=== PATIENT | male | born 1960 | race Caucasian/White ===

== ENCOUNTER → 2017-11-30 | Outpatient (CLI) | payer OTHER ==
[~2017-11-30] MED LIST: ALLOPURINOL 10100 M1 PO; AMLODIPINE BESY10 MG PO; BYSTOLIC 5 MG5 M1 PO; CALCIUM 600 +1 EAC1 PO; CENTRUM TABLET1 TAB PO; CLONAZEPAM 0.50.5 M1 PO; DIOVAN320 MG PO; ELIQUIS5 MG PO; EXFORGE OR; GABAPENTIN 100100 MG PO; HYDROCODONE-ACE15 ML PO; HYDROCODONE-AP1 EAC6 PO; KLOR-CON 1010 MEQ PO; LASIX 40 MG TAB40 M2 PO; NEXIUM40 MG PO; PERCOCET 7.5-51 EACH PO; PREDNISONE 5 MG5 M1 PO; TESTONE CI200 MG/1 M IM; VITAMIN D1000 UNI1 PO; VITAMIN D250000 UNIT PO
[2017-11-30 13:40] VITALS: BP 120/92
[2017-11-30 14:15] VITALS: BP 125/86
== END ==
LOC: OPONC 13:05
DX: D58.2 Other hemoglobinopathies (principal); I10 Essential (primary) hypertension; E78.00 Pure hypercholesterolemia, unspecified
CPT/HCPCS: 95100

== ENCOUNTER → 2017-12-10 | Outpatient (CLI) | payer OTHER ==
[~2017-12-10] MED LIST changes: +BENICAR40 MG PO; +DEPO-TESTO200 MG/1 M IM; +HYDROCODON-ACE1 EAC8 PO; +NORCO 7.5-3251 EACH PO; +PERCOCET PO; +PROAIR HFA8.5 GM INH
== END ==
LOC: RAD 14:56
DX: M25.561 Pain in right knee (principal); M25.562 Pain in left knee

== ENCOUNTER → 2018-02-22 | Outpatient (CLI) | payer OTHER ==
[~2018-02-22] MED LIST changes: -BENICAR40 MG PO; -DEPO-TESTO200 MG/1 M IM; -HYDROCODON-ACE1 EAC8 PO; -NORCO 7.5-3251 EACH PO; -PERCOCET PO; -PROAIR HFA8.5 GM INH
== END ==
LOC: RAD 10:01
DX: M79.671 Pain in right foot (principal); S93.104A Unspecified dislocation of right toe(s), initial encounter

== ENCOUNTER 2018-03-29 05:28 | Day surgery (SDC) | payer OTHER ==
[~2018-03-29] VITALS: Ht 170.2 cm; Wt 110.7 kg
--- NOTE | ~2018-03-29 | O ---
[facility] [place] [address] OPERATIVE REPORT Name: MARY BRITO Room #: 150-2 [facility] M.R.#: [id number] Admission: 03/29/18 Attend Phys: Jose Sharif MD Discharge: Date of : 56 Report #: [id number] THIS REPORT FOR: //name// CC: Jose Magdalenoal Arthur DATE OF SERVICE: 03/29/2018 PREOPERATIVE DIAGNOSIS: Right second toe proximal interphalangeal joint dislocation. POSTOPERATIVE DIAGNOSIS: Right second toe proximal interphalangeal joint dislocation. PROCEDURE: Right foot second toe proximal interphalangeal joint arthrodesis with dorsal capsulotomy and tenotomy at the metatarsophalangeal joint. SURGEON: Jose Sharif MD RISK MODELER: Erica Prajapati. ANESTHESIA: General. ESTIMATED BLOOD LOSS: Minimal. DRAINS: No drains. TOURNIQUET TIME: 30 minutes. DESCRIPTION OF PROCEDURE: The patient brought to the operating room where he was placed under general anesthesia. Once under adequate general anesthesia, his right lower extremity was prepped and draped in sterile manner and the extremity was elevated, exsanguinated, tourniquet placed to 300 mmHg. An elliptical incision overlying the proximal interphalangeal joint of the right second toe was then made. This was taken down to the dislocation, sharply excising the extensor mechanism in this area. A sagittal saw was used to remove the proximal phalangeal head of the second toe and the base of the middle phalanx was denuded of any cartilage with a small rongeur. The drills and broaches for the second toe Smart Toe implant were then utilized and a size 21 implant was then placed. Fluoroscopy was used to verify the position to be satisfactory and the alignment to be satisfactory. A small 1 cm incision overlying the second metatarsophalangeal joint was then made as well and the extensor tendons were incised with tenotomy scissors. The dorsal capsule was incised as well with a 15 blade and the wound was then irrigated copiously. Both wounds were irrigated copiously. The capsular layer was closed with 4-0 Vicryl suture, 4-0 nylon was used in the skin. The wounds were dressed with [facility] [address] [place] [address] OPERATIVE REPORT Name: MARY BRITO Room #: 150-2 [facility] M.R.#: [id number] Admission: 03/29/18 Attend Phys: Jose Sharif MD Discharge: Date of : 56 Report #: [id number] Xeroform, 4 x 4s, and sterile soft compressive dressing was placed. Tourniquet was let down at 30 minutes. Toes were pink and warm with good capillary refill. There were no complications from the procedure. The patient tolerated the procedure well and went to recovery room without incident. By: 1312 1340 Jose Sharif MD /nt
[~2018-03-29 05:28] MED LIST changes: +DEPO-TESTO200 MG/1 M IM; +HYDROCODON-ACE1 EAC8 PO; +PROAIR HFA8.5 GM INH
[2018-03-29 10:50] VITALS: BP 144/85
[2018-03-29 11:31] LABS: CALCIUM 8.8 mg/dL (8.5-10.1); CREATININE 1.4 mg/dL (0.7-1.3); POTASSIUM 3.9 mmol/L (3.5-5.1)
[2018-03-29] MEDS ORDERED: PERCOCET PO (13:03)
[2018-03-29 13:19] VITALS: BP 144/85
== END 2018-03-29 14:00 | disposition home or self-care (01) ==
LOC: OR 05:28 → TBA 05:32 → OR 09:05 → TBA 12:00 → OR 14:00
PROVIDERS: Orthopaedic Surgery Foot and Ankle Surgery
DX: S93.114A Dislocation of interphalangeal joint of right lesser toe(s), initial encounter (principal); I10 Essential (primary) hypertension; I48.91 Unspecified atrial fibrillation; J45.909 Unspecified asthma, uncomplicated; M79.7 Fibromyalgia; K21.9 Gastro-esophageal reflux disease without esophagitis; M10.9 Gout, unspecified; M06.9 Rheumatoid arthritis, unspecified; F41.9 Anxiety disorder, unspecified; Z98.890 Other specified postprocedural states; Z79.01 Long term (current) use of anticoagulants; Z88.8 Allergy status to other drugs, medicaments and biological substances; Z79.899 Other long term (current) drug therapy; X58.XXXA Exposure to other specified factors, initial encounter; Y93.89 Activity, other specified; Y92.89 Other specified places as the place of occurrence of the external cause; Y99.8 Other external cause status
CPT/HCPCS: 50010; 50101; 50386; 50951; 56524; 56526; 57091; 62110; 62900; 64037; 70005

== ENCOUNTER → 2018-09-03 | Outpatient (CLI) | payer OTHER ==
[~2018-09-03] MED LIST changes: +PERCOCET PO
== END ==
LOC: CAT 14:00
DX: Z13.6 Encounter for screening for cardiovascular disorders (principal); E78.00 Pure hypercholesterolemia, unspecified

== ENCOUNTER → 2018-09-17 | Outpatient (CLI) | payer OTHER ==
[~2018-09-17] VITALS: Ht 170.2 cm; Wt 111.1 kg
[~2018-09-17] MED LIST changes: +BENICAR40 MG PO; +NORCO 7.5-3251 EACH PO
--- NOTE | ~2018-09-17 | CATHLAB ---
[facility] [address] [place] [address] INVASIVE PROCEDURE REPORT Name: MARY BRITO Room #: REG Yenifer#: [id number] Admission: 09/17/18 Attend Phys: Israel Eduardo, Discharge: Date of : 56 Date of Service: 09/23/18 [facility] Report #: [id number] THIS REPORT FOR: //name// APPROVED REPORT Study performed: 09/17/2018 07:13:10 Patient Details Patient Status: Out-Patient Room #: The patient is a 58 year-old male Event Personnel Israel Eduardo Wardrobe Specialist, Minh Andrew Mahmood, Amber Monitor, Tate Sales RN, Pravin Sidhu RN fast food shift supervisor Performed Art Access - R femoral artery* 60165 Initial Mod Sed Same Phys/QHP Gr5y [id number] Left Heart Cath w/or w/o Coronaries [id number] [facility] Aortogram Abdominal Peripheral Angio 687572 Renal Bilateral Peripheral Angiography [id number] CVRENALBIL Hemostasis w/ Mynx Indication Chest pain Procedure Narrative The patient was brought electively to the Cardiac Catheterization Laboratory and was prepped and draped in a sterile manner. The Right Groin^ was infiltrated with 1% Lidocaine subcutaneous anesthesia. A PINNACLE 6FR Sheath #[id number] sheath was inserted into the RFA^. Coronary angiography was performed using coronary diagnostic catheters. The right coronary system was accessed and visualized with a JR 4 catheter. The left coronary system was accessed and visualized with a JL 4 catheter. The left ventricle was accessed and visualized with a Pigtail catheter. Left ventriculogram was performed in OCONNOR projection. An aortogram of the abdominal aorta was performed. Pre-demployment femoral angiogram was performed . Closure device was deployed with a 6 Fr Mynx. The patient tolerated the procedure well and there were no complications associated with the procedure. There was no hematoma. Intraoperative Conscious Sedation Sedation start time: 07:57 Case end Time: 08:21 Versed 2 mg [facility] [address] [place] [address] INVASIVE PROCEDURE REPORT Name: MARY BRITO KAVITHA Room #: [facility]#: [id number] Admission: 09/17/18 Attend Phys: Israel Eduardo, Discharge: Date of : 56 Date of Service: 09/23/18 1300 Report #: [id number] Fluoro Time: 2.50 minutes Dose: DAP 7796.00 cGycm2 960 mGy Contrast Type and Amount: Omnipaque 145 ml Hemodynamics The aortic pressure is 152/92 mmHg with a mean of 115 mmHg. The left ventricular pressure is 165/19 mmHg with a mean of mmHg. The left ventricular end diastolic pressure is 32 mmHg. Conclusion #1 normal left ventricular size and systolic function EF 60% #2 abdominal aorta is mildly ectatic but not aneurysmal no stenosis. Iliac system widely patent #3 left main mild calcification mild ostial disease 2030% #4 LAD with an eccentric 60-70% proximal lesion moderate disease in the diagonal LAD otherwise well-preserved around the apex #5 there is a ramus intermedius branch which also a 60-70% proximal lesion well preserved distal vessel #6 large dominant circumflex extends in the AV groove in the inferior wall widely patent 7 small nondominant right coronary artery widely patent Indications and plan: Continue aggressive risk factor modification. We will add SGL inhibitor for diabetes and cardiovascular benefit. We'll obtain nuclear stress testing looking to evaluate for significant ischemia in LAD and ramus intermedius distribution. Patient asymptomatic currently. Follow post catheter protocol. Follow-up will be arranged. <ELECTRONICALLY SIGNED> By: Israel Eduardo MD, FACC 09/23/18 1300 1300 1300 Israel Eduardo MD, FACC /INF
[2018-09-17 06:56] VITALS: BP 145/97
[2018-09-17 07:09] LABS: HEMATOCRIT 48.6 % (42.0-52.0); HEMOGLOBIN 16.2 gm/dL (14.0-18.0); MCH 30.2 pg (26.0-34.0); MCHC 33.3 g/dL (28.0-37.0); MCV 90.7 fL (80.0-100.0); RBC 5.36 mil/uL (4.50-6.00); RDW 15.6 % (10.5-14.5)
[2018-09-17 07:19] LABS: CALCIUM 8.8 mg/dL (8.5-10.1); CREATININE 1.2 mg/dL (0.7-1.3); POTASSIUM 3.6 mmol/L (3.5-5.1)
[2018-09-17 08:30] VITALS: BP 137/78
== END | disposition home or self-care (01) ==
LOC: CATH 06:38
PROVIDERS: Internal Medicine Cardiovascular Disease
DX: I25.10 Atherosclerotic heart disease of native coronary artery without angina pectoris (principal); I77.811 Abdominal aortic ectasia; I10 Essential (primary) hypertension; E78.5 Hyperlipidemia, unspecified; I48.91 Unspecified atrial fibrillation; I42.9 Cardiomyopathy, unspecified; K21.9 Gastro-esophageal reflux disease without esophagitis; I73.9 Peripheral vascular disease, unspecified; M10.9 Gout, unspecified; G89.29 Other chronic pain; J45.909 Unspecified asthma, uncomplicated; I87.2 Venous insufficiency (chronic) (peripheral); F41.1 Generalized anxiety disorder; Z98.890 Other specified postprocedural states; Z82.49 Family history of ischemic heart disease and other diseases of the circulatory system; Z79.01 Long term (current) use of anticoagulants; Z88.8 Allergy status to other drugs, medicaments and biological substances

== ENCOUNTER 2018-10-08 19:09 | Emergency (ER) | payer OTHER ==
[~2018-10-08] VITALS: Ht 170.2 cm; Wt 111.1 kg
[2018-10-08 21:23] VITALS: BP 140/92
== END 2018-10-08 21:24 | disposition home or self-care (01) ==
LOC: ER 19:09
DX: S82.432A Displaced oblique fracture of shaft of left fibula, initial encounter for closed fracture (principal); I48.91 Unspecified atrial fibrillation; J45.909 Unspecified asthma, uncomplicated; I42.9 Cardiomyopathy, unspecified; G89.29 Other chronic pain; F41.1 Generalized anxiety disorder; M10.9 Gout, unspecified; E78.5 Hyperlipidemia, unspecified; I10 Essential (primary) hypertension; K21.9 Gastro-esophageal reflux disease without esophagitis; Z88.1 Allergy status to other antibiotic agents; Z88.8 Allergy status to other drugs, medicaments and biological substances; W18.31XA Fall on same level due to stepping on an object, initial encounter; Y93.89 Activity, other specified; Y92.89 Other specified places as the place of occurrence of the external cause; Y99.8 Other external cause status

== ENCOUNTER 2019-05-19 05:39 | Day surgery (SDC) | payer OTHER ==
[2019-05-07 09:03] LABS: URINE BILIRUBIN NEGATIVE (Negative); URINE BLOOD NEGATIVE (Negative); URINE CLARITY CLEAR; URINE COLOR YELLOW; URINE GLUCOSE-RANDOM* NEGATIVE (Negative); URINE KETONES NEGATIVE (Negative); URINE LEUKOCYTES-REFLEX NEGATIVE (Negative); URINE NITRITE-REFLEX NEGATIVE (Negative); URINE PROTEIN (DIPSTICK) TRACE (Negative); URINE SPECIFIC GRAVITY 1.015 (1.005-1.035); URINE UROBILINOGEN 0.2 E.U./dl (0.2-1.0)
[2019-05-07 09:04] LABS: HEMATOCRIT 49.6 % (42.0-52.0); HEMOGLOBIN 16.6 gm/dL (14.0-18.0); MCH 30.8 pg (26.0-34.0); MCHC 33.5 g/dL (28.0-37.0); RBC 5.4 mil/uL (4.50-6.00); WBC 13.4 thou/uL (4.0-11.0)
[2019-05-07 09:11] LABS: ALBUMIN 3.6 g/dL (3.4-5.0); CALCIUM 8.9 mg/dL (8.5-10.1); CREATININE 1.2 mg/dL (0.7-1.3)
[2019-05-07 09:14] LABS: INR 1.1; PROTIME 11.6 Seconds (9.3-11.4)
[2019-05-08 10:08] LABS: GLYCOHEMOGLOBIN (HGB A1C) 6.7 % (4.8-5.6)
[~2019-05-19] VITALS: Ht 170.2 cm; Wt 107.5 kg
[~2019-05-19 05:39] MED LIST changes: +GLUCOPHAGE XR500 MG PO; +REPATHA SY140 MG/1 M SUBQ
[2019-05-19 14:43] VITALS: BP 167/99
[2019-05-19 21:19] VITALS: BP 137/105
[2019-05-19 22:03] VITALS: BP 151/100
[2019-05-19 23:00] VITALS: BP 95/63
[2019-05-20 01:05] VITALS: BP 114/64
[2019-05-20 02:00] VITALS: BP 100/66
--- NOTE | 2019-05-20 02:28 | NUR ---
ASSUMED CARE OF PT AT 2100HRS. PT AOX4 AND LETS NEEDS BE KNOWN. PT WAS ORIENTED TO THE ROOM AND THE UNIT. POST OP VSS. PAIN IS MANAGED AT THIS TIME. PT WAS ABLE TO GET COMORTABLE AND SOME SLEEP. SURGICAL DRESSING INTACT. NO OHER S/S OF ACUTE DISTRESS. WILL CONTINE TO MONITOR.
[2019-05-20 03:55] VITALS: BP 90/72
[2019-05-20 05:31] LABS: HEMATOCRIT 46.3 % (42.0-52.0); HEMOGLOBIN 15.1 gm/dL (14.0-18.0); MCH 30.5 pg (26.0-34.0); MCHC 32.6 g/dL (28.0-37.0); MCV 93.5 fL (80.0-100.0); RBC 4.95 mil/uL (4.50-6.00); RDW 16.3 % (10.5-14.5); WBC 18.7 thou/uL (4.0-11.0)
[2019-05-20 07:39] VITALS: BP 119/78
--- NOTE | 2019-05-20 11:47 | NUR ---
Received awake on bed. Due medications given as prescribed- able to swallow meds w/o difficulty. With IV at L Fa- patent and IVF infusing well, ongoing 1st bag out of 2. On O2 at 2lpm via nasal cannula. Pt started on blood sugar monitoring- on metformin and taking steroids as well. With leg dressing on R knee- dressing C/D/I, with Lissy dressing and ice packs as well. Pt seen by PT today- did well on assessment and exercises, will inform surgeon on how he did and possible discharge today. Visited by relatives today. Complained of pain, due medications given as prescribed. Pt seen by Nisha Black- pending d/c, to home with home health- a/w CM re: home health set up. Vital signs stable.
[2019-05-20 13:35] VITALS: BP 119/78
--- NOTE | 2019-05-20 13:38 | NUR ---
INITIAL ASSESSMENT/DISCHARGE NOTE: Received consult for discharge planning--HH PT for 2 weeks. Pt also need a roller walker. FORD reviewed chart. Pt is POD#1 right TKA and is medically stable for discharge home today. Met with pt's at bedside. Introduced role of SW. Pt is alert/orientated x 4. Pt and live in a house. 5 steps to enter 12 steps inside. Pt is independent wtih ADLs. No use of DME or hx of HH or SNF/Rehab placement. Options provided for HH agencies. Pt's is agreeable with referral to [facility]. FORD confirmed pt's home address and phone number. Pt's PCP is Dr. Arthur. No preference voiced for [employer] company for roller walker. sales planner faxed face sheet to [facility] Patient for the roller walker. FORD spoke with Opal in intake to follow up on request for walker. Per Opal, she will check pt's insurance to confirm they are able to provide walker. FORD notified intake at [facility] of new referral. [facility] is able to accept pt. Contact info for [facility] and [facility] Patient placed in pt's discharge summary. Pt's family to provide transportation home. FORD is following to finalize discharge.
--- NOTE | 2019-05-20 14:09 | NUR ---
DISCHARGE PLANNING. PATIENT DISCHARGING TO HOME. WILL NEED ROLLER WALKRE FOR HOME USE. FACE SHEET FAXED TO [facility] PATIENT LIAISON, FOR INSURANCE AUTH VERIFICATION. AWAITING RESPONSE. FOLLOWING TO ASSIST.
--- NOTE | 2019-05-21 14:38 | O ---
[facility] [place] [address] OPERATIVE REPORT Name: MARY BRITO Room #: [facility] M.R.#: [id number] Admission: 05/19/19 ������������������ Attend Phys: Riaz Quigley MD Discharge: 05/20/19 ������������������ Date of : 56 Report #: [id number] THIS REPORT FOR: //name// CC: Jose Quigley DATE OF SERVICE: 05/19/2019 PREOPERATIVE DIAGNOSIS: Right knee osteoarthritis. POSTOPERATIVE DIAGNOSIS: Right knee osteoarthritis. PROCEDURE: Right total knee arthroplasty using Navio robotic medicine assistant. SURGEON: Riaz Quigley MD TECHNICAL SUPPORT MANAGER: Nisha Black PA-C ANESTHESIA: LMA with an adductor canal block. INDICATION FOR ASSISTANCE: Throughout the case, extensive retraction and manipulation of the knee was required. This was afforded to me by my medicine assistant. IMPLANTS: [employer] size 7 Journey II BCS posterior stabilized Oxinium femur, a size 6 tibia, size 9 polyethylene and size 38 patella. TOURNIQUET TIME: 61 minutes. ESTIMATED BLOOD LOSS: 25 mL. COMPLICATIONS: None. SPECIMENS: None. CONDITION UPON LEAVING THE OPERATING ROOM: Stable. INDICATIONS FOR PROCEDURE: The patient is a 59-year-old gentleman with right knee osteoarthritis. He had failed conservative measures for this and after discussion with him, he elected for right total knee arthroplasty. DESCRIPTION OF PROCEDURE: Risks, benefits, alternatives, complications were discussed in detail with the patient including, but not limited to, risk of anesthesia, risk of damage to nerves, arteries, blood vessels, risk for infection, bleeding, risk for continued knee pain and need for reoperation. Informed consent was obtained from the patient. Right knee was appropriately marked in the preoperative holding area. IV Ancef was given for preoperative [address] [address] OPERATIVE REPORT Name: MARY BRITO KAVITHA Room #: [facility] M.Ivis.#: [id number] Admission: 05/19/19 ������������������ Attend Phys: Riaz Quigley MD Discharge: 05/20/19 ������������������ Date of : 56 Report #: [id number] antibiotics. Adductor canal block was placed by anesthesia. He was brought to the operating room and placed in the supine position on the operating room table. LMA anesthesia was induced without complication. Tourniquet was placed on the right thigh. Right lower extremity was prepped and draped in normal sterile fashion. Timeout was performed properly identifying the patient and procedure as well as the instrumentation and implants. All in the operating room were in agreement. Right lower extremity was exsanguinated, tourniquet was inflated. Tourniquet time was 61 minutes. Standard midline approach to knee was made with #10 blade through the skin. Dissection was taken down sharply to the fascia and deep flaps were developed medially and laterally. Fresh #10 blade was used to make a medial parapatellar arthrotomy and the knee was inspected. There was severe medial compartment osteoarthritis with moderate lateral and patellofemoral involvement. ACL and PCL were removed sharply. Reference pins were placed in the femur and the tibia and the knee was then digitally mapped using the CO Everywhere robotic system and the intraoperative plan was made. We sized a size 7 femur and a size 6 tibia with a size 10 polyethylene. After acceptance of intraoperative plan, the distal femoral cut was made on the femur with a Navio bur. The distal femoral cutting block was then pinned in place and the femoral cuts were made. Attention was then turned to the tibia. The remainder of the menisci were removed with Bovie cautery. Tibial resection guide was pinned in place using Navio for placement and the tibial resection was made. After this, flexion and extension gaps were checked and found to have good balance in flexion and extension both medially and laterally. Tibia was sized, found to be a size 6. A size 6 tibial trial was placed, pinned and punched. A size 7 femoral trial was placed and the box cut was made. This was then trialed with a size 9 polyethylene. Knee was taken through range of motion, found to be stable, found to have a millimeter of laxity medially and laterally throughout range of motion. The 9 mm was then resected from the posterior surface of the patella and a size 38 patellar trial button was placed. Knee was taken through range of motion, found to be stable and found to have good patellar tracking. Trial components were removed. Bony ends were thoroughly irrigated with normal saline. Final size 6 tibia, size 7 Journey II BCS Oxinium femur and a size 38 patella were cemented in place using standard cementation techniques. While the cement cured, a periarticular injection consisting of morphine, ropivacaine, epinephrine and Toradol was placed around the knee joint capsule. After the cement cured, the tourniquet was deflated. Hemostasis was obtained with Bovie cautery. Final size 9 polyethylene was placed. A gram of vancomycin was placed deep in the joint. Fascia was closed with 0 Vicryl, skin was closed with 2-0 Vicryl, 3-0 Monocryl. Dermabond and KARLY dressing was applied. The patient tolerated this procedure well and went to recovery room under care of anesthesia postoperatively. ��������������������������������������������� <ELECTRONICALLY SIGNED> ���������������������������������������� By: Riaz Quigley MD ��������������������������������������������� 05/21/19 1438 1927 08 Riaz Quigley MD /nt
== END 2019-05-20 16:52 | disposition home health service (06) ==
LOC: OR 05:39 → EDBD 05:39 → TBA 05:40 → OR 08:00 → 4W 21:08 → ENTRNSPT 05-20 16:49 → OR 05-20 16:52
PROVIDERS: Orthopaedic Surgery
DX: M17.11 Unilateral primary osteoarthritis, right knee (principal); I10 Essential (primary) hypertension; E11.9 Type 2 diabetes mellitus without complications; I48.91 Unspecified atrial fibrillation; F41.9 Anxiety disorder, unspecified; J45.909 Unspecified asthma, uncomplicated; I42.9 Cardiomyopathy, unspecified; G89.29 Other chronic pain; I87.2 Venous insufficiency (chronic) (peripheral); F41.1 Generalized anxiety disorder; M10.9 Gout, unspecified; E78.5 Hyperlipidemia, unspecified; Z98.890 Other specified postprocedural states; Z79.01 Long term (current) use of anticoagulants; Z79.899 Other long term (current) drug therapy; Z88.8 Allergy status to other drugs, medicaments and biological substances; Z79.891 Long term (current) use of opiate analgesic
CPT/HCPCS: 10047; 50010; 50101; 50415; 50954; 51130; 51225; 51320; 52001; 53000; 53078; 54118; 55372; 56527; 56528; 57095; 57103; 57110; 57127; 57180; 62110; 62900; 64043; 65060; 70005

== ENCOUNTER 2019-05-22 06:40 | Day surgery (SDC) | payer OTHER ==
[~2019-05-22] VITALS: Ht 170.2 cm; Wt 108.9 kg
--- NOTE | ~2019-05-22 | O ---
[facility] [place] [address] OPERATIVE REPORT Name: MARY BRITO Room #: 150-10 [facility] M.R.#: [id number] Admission: 05/22/19 ������������������ Attend Phys: Riaz Quigley MD Discharge: ������������������ Date of : 56 Report #: [id number] THIS REPORT FOR: //name// CC: Jose Quigley DATE OF SERVICE: 05/22/2019 PREOPERATIVE DIAGNOSIS: Right knee postop total knee arthroplasty hematoma. POSTOPERATIVE DIAGNOSIS: Right knee postop total knee arthroplasty hematoma. PROCEDURE: Evacuation of right knee hematoma. SURGEON: Riaz Quigley MD. CHART CLERK: Nisha Black PA-C. ANESTHESIA: LMA. ESTIMATED BLOOD LOSS: 25 mL. COMPLICATIONS: None. SPECIMENS: None. CONDITION UPON LEAVING THE OPERATING ROOM: Stable. INDICATIONS FOR PROCEDURE: The patient is a 59-year-old gentleman who is 4 days out from a right total knee arthroplasty. He is on Eliquis for underlying atrial fibrillation. He presented to the clinic yesterday with significant drainage of blood from his incision. It was felt that he had developed a postoperative hematoma secondary to his Eliquis usage and after discussion with him he elected for evacuation of the hematoma. DESCRIPTION OF PROCEDURE: Risks, benefits, alternatives, complications were discussed in detail with the patient including but not limited to risk of anesthesia, risk of damage to nerves, arteries, blood vessels; risk for infection, continued bleeding, need for reoperation. Informed consent was obtained from the patient. DESCRIPTION OF PROCEDURE: Right knee was appropriately marked in the preoperative holding area. IV Ancef was given for preoperative antibiotics. He was brought to the operating room and placed in supine position on operating room table. LMA anesthesia was induced without complication. Tourniquet was placed on the right thigh. Right lower extremity was prepped and draped in [address] [address] OPERATIVE REPORT Name: MARY BRITO Room #: 150-10 [facility] M.R.#: [id number] Admission: 05/22/19 ������������������ Attend Phys: Riaz Quigley MD Discharge: ������������������ Date of : 56 Report #: [id number] normal sterile fashion. Timeout was performed properly identifying the patient and procedure as well as instrumentation. All in the operating room were in agreement. The previous incision was then opened with a 10 blade. Upon entering the adipose layer, there was a hematoma that was evacuated. There were some bleeding vessels at the inferior portion of his incision that were cauterized with Bovie cautery. The fascial closure was well maintained and this was not opened. Knee was then thoroughly irrigated with normal saline. A Hemovac drain was placed. The skin was closed with 2-0 Vicryl and skin iris and a KARLY dressing was applied. The patient tolerated this procedure well and went to recovery room under care of Anesthesia postoperatively. ��������������������������������������������� ���������������������������������������� By: ��������������������������������������������� 1405 1415 Riaz Quigley MD /tiarra
[2019-05-22 10:00] VITALS: BP 137/81
[2019-05-22 12:19] VITALS: BP 137/81
== END 2019-05-22 13:30 | disposition home or self-care (01) ==
LOC: OR 06:40 → EDBD 06:40 → TBA 06:40 → OR 11:29
DX: M96.840 Postprocedural hematoma of a musculoskeletal structure following a musculoskeletal system procedure (principal); Z96.651 Presence of right artificial knee joint; I10 Essential (primary) hypertension; M10.9 Gout, unspecified; E11.9 Type 2 diabetes mellitus without complications; I48.91 Unspecified atrial fibrillation; J45.909 Unspecified asthma, uncomplicated; E78.5 Hyperlipidemia, unspecified; K21.9 Gastro-esophageal reflux disease without esophagitis; I42.9 Cardiomyopathy, unspecified; G89.29 Other chronic pain; I87.2 Venous insufficiency (chronic) (peripheral); F41.1 Generalized anxiety disorder; M06.9 Rheumatoid arthritis, unspecified; Z79.01 Long term (current) use of anticoagulants; Z98.890 Other specified postprocedural states; Z79.899 Other long term (current) drug therapy; Z88.8 Allergy status to other drugs, medicaments and biological substances; Z79.891 Long term (current) use of opiate analgesic
CPT/HCPCS: 50010; 50101; 50415; 50954; 51412; 51771; 53078; 56528; 57095; 57103; 62110; 62900; 70005

== ENCOUNTER → 2019-05-27 | Outpatient (CLI) | payer OTHER | LOC: ULTRA 15:08 | DX: M79.89 Other specified soft tissue disorders (principal); M25.461 Effusion, right knee ==

== ENCOUNTER 2019-06-12 17:39 | Emergency (ER) | payer OTHER ==
[~2019-06-12] VITALS: Ht 170.2 cm; Wt 108.9 kg
[2019-06-12 19:20] LABS: HEMATOCRIT 41.2 % (42.0-52.0); HEMOGLOBIN 13.4 gm/dL (14.0-18.0); MCH 30.5 pg (26.0-34.0); MCHC 32.4 g/dL (28.0-37.0); PLATELET COUNT 299 thou/uL (150-400); RBC 4.39 mil/uL (4.50-6.00); RDW 16.5 % (10.5-14.5); WBC 13.9 thou/uL (4.0-11.0)
[2019-06-12 19:28] LABS: CALCIUM 9.1 mg/dL (8.5-10.1); CREATININE 1.3 mg/dL (0.7-1.3); POTASSIUM 5.6 mmol/L (3.5-5.1)
[2019-06-12 19:34] LABS: TOTAL BILIRUBIN 0.7 mg/dL (<0.1-1.0); TOTAL PROTEIN 6.9 g/dL (6.4-8.2)
[2019-06-12 20:02] VITALS: BP 144/95
[2019-06-12 20:15] LABS: ABSOLUTE NEUTROPHILS 12.1 thou/uL (1.4-8.2); ANISOCYTOSIS 1+
[2019-06-12 20:16] LABS: POLYCHROMASIA OCCASIONAL
--- NOTE | 2019-06-13 08:10 | EKG ---
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 : 1960 Requested By: Kvng Howell Order Number: [id number] MD: Samson Lugo Measurements Intervals [place] Rate: 67 P: ID: QRS: -2 QRSD: 92 T: 16 QT: 401 QTc: 424 Interpretive Statements Atrial fibrillation Otherwise normal Compared to ECG 03/31/2000 16:09:14 Sinus rhythm no longer present Electronically Signed On 06-13-2019 8:09:52 CDT by Samson Lugo [email or web address] ��������������������������������������������� <ELECTRONICALLY SIGNED> ���������������������������������������� By: Samson Lugo MD, [facility] ��������������������������������������������� 06/13/19 0809 13 13 Samson Lugo MD, FACC /EPI
== END 2019-06-12 20:05 | disposition home or self-care (01) ==
LOC: ER 17:39 → EDBD 17:39 → ER 20:05
PROVIDERS: Emergency Medicine
DX: M25.541 Pain in joints of right hand (principal); R20.0 Anesthesia of skin; I48.91 Unspecified atrial fibrillation; G89.29 Other chronic pain; F41.9 Anxiety disorder, unspecified; M10.9 Gout, unspecified; E11.9 Type 2 diabetes mellitus without complications; I10 Essential (primary) hypertension; E78.5 Hyperlipidemia, unspecified; J45.909 Unspecified asthma, uncomplicated; Z96.651 Presence of right artificial knee joint; Z88.1 Allergy status to other antibiotic agents; Z88.5 Allergy status to narcotic agent; Z88.8 Allergy status to other drugs, medicaments and biological substances

== ENCOUNTER → 2019-07-02 | Outpatient (CLI) | payer OTHER | LOC: HYPER 07-01 15:47 | DX: I70.25 Atherosclerosis of native arteries of other extremities with ulceration (principal); L98.491 Non-pressure chronic ulcer of skin of other sites limited to breakdown of skin; I74.9 Embolism and thrombosis of unspecified artery; E78.5 Hyperlipidemia, unspecified; I10 Essential (primary) hypertension; I48.2 Chronic atrial fibrillation; I99.8 Other disorder of circulatory system; I42.9 Cardiomyopathy, unspecified; I87.2 Venous insufficiency (chronic) (peripheral); M10.9 Gout, unspecified; K21.9 Gastro-esophageal reflux disease without esophagitis; G89.29 Other chronic pain; F41.9 Anxiety disorder, unspecified; Z79.82 Long term (current) use of aspirin; Z79.52 Long term (current) use of systemic steroids; Z79.01 Long term (current) use of anticoagulants ==

== ENCOUNTER → 2019-07-17 | Outpatient (CLI) | payer OTHER | LOC: HYPER 07:21 | DX: I70.25 Atherosclerosis of native arteries of other extremities with ulceration (principal); L98.491 Non-pressure chronic ulcer of skin of other sites limited to breakdown of skin; E78.5 Hyperlipidemia, unspecified; G89.29 Other chronic pain; I74.9 Embolism and thrombosis of unspecified artery; I48.2 Chronic atrial fibrillation; I99.8 Other disorder of circulatory system; I42.9 Cardiomyopathy, unspecified; I10 Essential (primary) hypertension; M10.9 Gout, unspecified; K21.9 Gastro-esophageal reflux disease without esophagitis; F41.9 Anxiety disorder, unspecified; Z96.659 Presence of unspecified artificial knee joint; Z79.82 Long term (current) use of aspirin; Z79.52 Long term (current) use of systemic steroids; Z79.01 Long term (current) use of anticoagulants ==

== ENCOUNTER → 2019-08-07 | Outpatient (CLI) | payer OTHER ==
[~2019-08-07] MED LIST changes: +ASPIRIN325 PO; +GABAPENTIN800 M1 PO; +GLUCOPHAGE XR500 M1 PO; -GLUCOPHAGE XR500 MG PO; +KEFLEX500 M2 PO; +NORCO 10-325 T1 EACH PO; +POTASSIUM20 PO; +ZYLOPRIM300 MG PO
== END ==
LOC: MRI 11:10
DX: M18.11 Unilateral primary osteoarthritis of first carpometacarpal joint, right hand (principal); R60.0 Localized edema

== ENCOUNTER → 2019-08-07 | Outpatient (CLI) | payer OTHER ==
[~2019-08-07] MED LIST changes: -ASPIRIN325 PO; -GABAPENTIN800 M1 PO; -GLUCOPHAGE XR500 M1 PO; +GLUCOPHAGE XR500 MG PO; -KEFLEX500 M2 PO; -NORCO 10-325 T1 EACH PO; -POTASSIUM20 PO; -ZYLOPRIM300 MG PO
== END ==
LOC: HYPER
DX: I70.25 Atherosclerosis of native arteries of other extremities with ulceration (principal); L98.491 Non-pressure chronic ulcer of skin of other sites limited to breakdown of skin; E78.5 Hyperlipidemia, unspecified; G89.29 Other chronic pain; I10 Essential (primary) hypertension; I48.91 Unspecified atrial fibrillation; I42.9 Cardiomyopathy, unspecified; I99.8 Other disorder of circulatory system; I74.9 Embolism and thrombosis of unspecified artery; I48.2 Chronic atrial fibrillation; K21.9 Gastro-esophageal reflux disease without esophagitis; M10.9 Gout, unspecified; F41.9 Anxiety disorder, unspecified; Z79.82 Long term (current) use of aspirin; Z79.52 Long term (current) use of systemic steroids; Z79.01 Long term (current) use of anticoagulants

== ENCOUNTER → 2019-08-28 | Outpatient (CLI) | payer OTHER ==
[~2019-08-28] MED LIST changes: +ASPIRIN325 PO; +GABAPENTIN800 M1 PO; +GLUCOPHAGE XR500 M1 PO; -GLUCOPHAGE XR500 MG PO; +KEFLEX500 M2 PO; +NORCO 10-325 T1 EACH PO; +POTASSIUM20 PO; +ZYLOPRIM300 MG PO
== END ==
LOC: HYPER 03:46
DX: L98.491 Non-pressure chronic ulcer of skin of other sites limited to breakdown of skin (principal); I70.25 Atherosclerosis of native arteries of other extremities with ulceration; I99.8 Other disorder of circulatory system; I74.9 Embolism and thrombosis of unspecified artery; I42.9 Cardiomyopathy, unspecified; M10.9 Gout, unspecified; E78.5 Hyperlipidemia, unspecified; G89.29 Other chronic pain; K21.9 Gastro-esophageal reflux disease without esophagitis; F41.9 Anxiety disorder, unspecified; Z79.82 Long term (current) use of aspirin; Z79.52 Long term (current) use of systemic steroids; Z79.01 Long term (current) use of anticoagulants

== ENCOUNTER 2019-09-15 12:42 | Day surgery (SDC) | payer OTHER ==
[~2019-09-15] VITALS: Ht 170.2 cm; Wt 105.7 kg
--- NOTE | ~2019-09-15 | O ---
[facility] [place] [address] OPERATIVE REPORT Name: MARY BRITO Room #: 150-1 [facility] M.R.#: [id number] Admission: 09/15/19 Attend Phys: Jana Chao, Discharge: Date of : 56 Report #: [id number] THIS REPORT FOR: //name// CC: Jose Chao DATE OF SERVICE: 09/15/2019 PREOPERATIVE DIAGNOSIS: Right ring finger necrosis and tip necrosis. POSTOPERATIVE DIAGNOSIS: Right ring finger necrosis and tip necrosis. PROCEDURE PERFORMED: Right ring finger amputation through the proximal interphalangeal joint. SURGEON: Jana Chao M.D. ANESTHESIA: General mask anesthesia. ESTIMATED BLOOD LOSS: 2 mL. TOURNIQUET TIME: 29 minutes. COMPLICATIONS: None. CONDITION: Stable. DISPOSITION: Recovery room. INDICATIONS: The patient is a 59-year-old male with the above-mentioned diagnosis. He elects for operative treatment. The risks, benefits, alternatives and complications were discussed including but not limited to infection, damage to vessels or nerves, incomplete healing of his wound or stump pain. Informed consent was obtained. The correct extremity was identified and labeled by myself after verbal confirmation of the patient as well as visual confirmation and signed informed consent. DESCRIPTION OF PROCEDURE: The patient was brought to the operating room and placed on a supine position. He received preoperative antibiotics. Tourniquet was placed over padding on the patient's right upper extremity was sterilely prepped and draped in usual fashion. A final time-out was taken to verify correct patient, operative procedure, and site, all concurred. The arm was elevated, exsanguinated proximal to the wrist and the tourniquet inflated. Next, the necrotic bone was removed. The bone was removed all the way to the PIP joint. The neurovascular bundles were identified. The nerves were transected proximally sharply. A volar flap was created and this was sutured to [address] [address] OPERATIVE REPORT Name: MARY BRITO Room #: 150-1 [facility] M..#: [id number] Admission: 09/15/19 Attend Phys: Jana Chao, Discharge: Date of : 56 Report #: [id number] the dorsal skin and any dog ears were removed. Prior to performing the closure, the wound was thoroughly irrigated with antibiotic saline. The skin was closed with 4-0 nylon suture in a detentioning type stitch. The digital nerve block was done at the base of the finger volarly with approximately 6 mL of 0.25% Marcaine. The tourniquet was deflated. There was nice pink capillary refill immediately to the tip. The wound was dressed with Adaptic and sterile gauze. He was placed in a bulky dressing. All fingers were pink with brisk capillary refill at the conclusion of case after deflation of tourniquet. All sponge and needle counts were correct. The patient was transferred to postoperative recovery room in stable condition. By: 1539 1625 Jana Chao MD /nt
[2019-09-15 13:21] LABS: CALCIUM 9.5 mg/dL (8.5-10.1); CREATININE 1.1 mg/dL (0.7-1.3); POTASSIUM 3.9 mmol/L (3.5-5.1)
[2019-09-15 13:55] VITALS: BP 142/98
[2019-09-15 15:57] VITALS: BP 142/98
--- NOTE | 2019-09-17 17:06 | PATH ---
[facility] [address] [place] [address] PATHOLOGY RPT PROCEDURE Name: MARY BRITO Room #: DEP [facility] M.R.#: [id number] Admission: 09/15/19 Date of : 56 Discharge: 09/15/19 Report #: [id number] Path Case #: [id number] LCA Accession Number: [id number] . 01 Material submitted: . finger - RIGHT RING FINGER PARTIAL AMPUTATION. Modifiers: right . 01 Clinical history: . Idiopathic aseptic necrosis of right finger . 02 Diagnosis: Finger, right ring finger, partial amputation: - Skin and subcutaneous tissue showing ulceration, fibrinoid degeneration as well as gangrenous necrosis. - Marked acute inflammation involving underlying bone consistent with osteomyelitis. - Bone margin viable and unremarkable. (IUV:treva; 09/17/2019) MBR 09/17/2019 1502 Local . 02 Electronically signed: . Graciela Miller MD, Pathologist NPI- [id number] . 01 Gross description: . The specimen is received in formalin, labeled "Mary Brito, right ring finger partial amputation". Received is an AP dated digit measuring 5.3 x 2.2 x 1.8 cm in greatest dimensions. The bone margin is smooth and concave in appearance, consistent with disarticulation. The bone and soft tissue margins are inked black. The nail is present displaying a light lucero and grossly markedly appearance. The distal third of the specimen is dusky diallo-brown and flaky in appearance. A full-thickness longitudinal cross-section is submitted from proximal to distal aspects in cassettes A1 through A3, following decalcification. (CAA; 09/16/2019) QAC/QAC 09/16/2019 1136 Local . 02 Pathologist provided ICD-10: M86.8X4, I96 . 02 CPT . 546967 Specimen Comment: A courtesy copy of this report has been sent to [phone] Specimen Comment: [phone] Specimen Comment: Report sent to / DR BENITEZ Performed at: 01 [place] [address] PATHOLOGY RPT PROCEDURE Name: MARY BRITO Room #: DEP [facility] M.R.#: [id number] Admission: 09/15/19 Date of : 56 Discharge: 09/15/19 Report #: [id number] Path Case #: [id number] [facility] [place] [address], [place], [place] [id number] MD Misbah Angela MD Phone: [phone] Performed at: [address] [id number] MD Graciela Miller MD Phone: [phone]
== END 2019-09-15 17:00 | disposition home or self-care (01) ==
LOC: OR 12:42 → TBA 14:28 → OR 17:00
PROVIDERS: Orthopaedic Surgery Hand Surgery
DX: M86.141 Other acute osteomyelitis, right hand (principal); I96 Gangrene, not elsewhere classified; G89.29 Other chronic pain; I10 Essential (primary) hypertension; E78.5 Hyperlipidemia, unspecified; J45.909 Unspecified asthma, uncomplicated; I48.91 Unspecified atrial fibrillation; I42.9 Cardiomyopathy, unspecified; M10.9 Gout, unspecified; E11.9 Type 2 diabetes mellitus without complications; M06.9 Rheumatoid arthritis, unspecified; I87.2 Venous insufficiency (chronic) (peripheral); F41.1 Generalized anxiety disorder; Z98.890 Other specified postprocedural states; Z96.651 Presence of right artificial knee joint; Z88.8 Allergy status to other drugs, medicaments and biological substances; Z79.899 Other long term (current) drug therapy; Z79.01 Long term (current) use of anticoagulants
CPT/HCPCS: 50010; 50101; 50386; 56526; 57006; 57091; 57178; 62110; 62900; 70005

== ENCOUNTER → 2020-01-02 | Outpatient (CLI) | payer OTHER ==
[~2020-01-02] MED LIST changes: +EFFIENT10 MG PO; +LIPITOR40 MG PO
== END ==
LOC: SJCVCIMAG 08:19
DX: I48.91 Unspecified atrial fibrillation (principal); I42.9 Cardiomyopathy, unspecified; R53.83 Other fatigue; I10 Essential (primary) hypertension; E78.5 Hyperlipidemia, unspecified; I25.10 Atherosclerotic heart disease of native coronary artery without angina pectoris; Z79.899 Other long term (current) drug therapy

== ENCOUNTER 2020-01-05 06:33 | Observation (INO) | payer OTHER ==
[~2020-01-05] VITALS: Ht 170.2 cm; Wt 106.1 kg
[2020-01-05] VITALS (8 sets, daily range): BP systolic 143–176; BP diastolic 88–101
--- NOTE | ~2020-01-05 | D ---
[facility] [place] [address] DISCHARGE SUMMARY Name: MARY BRITO Room #: 211-P [facility] M.R.#: [id number] Admission: 01/05/20 Attend Phys: Israel Eduardo MD, Discharge: Date of : 56 Report #: [id number] THIS REPORT FOR: cc: Jose Arthur MD, Neal A. MD ~ THIS REPORT FOR: //name// CC: Israel Eduardo Jose Arthur [facility] COURSE: The patient is a 59-year-old male who was admitted with accelerating angina and an abnormal nuclear stress test suggesting progression of an LAD lesion. Subsequently, he was admitted and taken to the catheterization lab. There was definite progression of the proximal LAD lesion, ____ 98% proximal LAD. This was successfully dilated and stented with placement of a 2.75 x 15 Resolute [place] drug-eluting stent. This was postdilated with a noncompliant balloon to 3.1 mm. This yielded 0% residual and ERWIN grade 3 flow. There was mild disease in the remainder of the LAD, which wrapped the apex and the diagonal system, but brisk flow noted. The circumflex OM was a dominant vessel and 40% proximal and some mild distal disease. Nondominant right. LV function was preserved. He is up and ambulating. The groin is stable. EKG is showing no acute changes. He will go on dual therapy. He has permanent AFib, so he will be on Eliquis 5 mg b.i.d. q. 12 hours as described and Effient 10 mg daily. There will be no aspirin. We will not use triple therapy here. Remainder of his home medications will be restarted and have been restarted with the exception of metformin which will be given to restart tomorrow morning. Other medications will be albuterol, allopurinol, Bystolic 5 mg, his Depo-Testosterone, Lasix 40, gabapentin, hydrocodone and [place] as directed, metformin 500 daily to restart tomorrow, olmesartan 40, prednisone 10. No lifting for 48 hours. No lying in tub, Jacuzzi or tena for a week. The patient has to followup with Dr. Arthur and Dr. Falcon. DISCHARGE DIAGNOSES: 1. Coronary artery disease with accelerating angina, successful urgent placement of the proximal left anterior descending stent, see above. 2. Hypertension. 3. Hypercholesterolemia. 4. Permanent atrial fibrillation. 5. Chronic pain with underlying connective tissue disorder. Followup will be with myself in 1 month. No MRI or dental work for [address] [address] DISCHARGE SUMMARY Name: MARY BRITO Room #: 211-P [facility] M.R.#: [id number] Admission: 01/05/20 Attend Phys: Israel Eduardo MD, Discharge: Date of : 56 Report #: [id number] Thank you for asking me to assist in the care of this patient. By: 0732 0808 /nt
[~2020-01-05 06:33] MED LIST changes: -EFFIENT10 MG PO; -LIPITOR40 MG PO
[2020-01-05 07:15] LABS: HEMATOCRIT 44.5 % (42.0-52.0); MCH 28.5 pg (26.0-34.0); MCHC 31.4 g/dL (28.0-37.0); MCV 90.8 fL (80.0-100.0); RBC 4.9 mil/uL (4.50-6.00); RDW 16.4 % (10.5-14.5); WBC 16.6 thou/uL (4.0-11.0)
[2020-01-05 07:21] LABS: CALCIUM 9.2 mg/dL (8.5-10.1); CREATININE 1.1 mg/dL (0.7-1.3); POTASSIUM 3.8 mmol/L (3.5-5.1)
--- NOTE | 2020-01-05 09:02 | EKG ---
[facility] [place] [address] ELECTROCARDIOGRAM REPORT Name: MARY BRITO Room #: REG CL M..#: [id number] Admission: 01/05/20 Attend Phys: Israel Eduardo MD, Discharge: Date of : 56 Report #: [id number] THIS REPORT FOR: cc: Jose Arthur MD, Neal A. MD Lammoglia, Francisco J. MD ~ THIS REPORT FOR: //name// [facility] Test Date: 2020-01-05 Test Time: 07:23:51 Pat Name: MARY BRITO Department: Room: Gender: Supplier Quality Specialist: [facility] : 1960 Requested By: Israel Eduardo Order Number: [id number] MD: Gonzalez Bishop Measurements Intervals [place] Rate: 62 P: [place]: QRS: 5 QRSD: 95 T: 35 QT: 397 QTc: 404 Interpretive Statements Atrial fibrillation Early transition Nonspecific ST-T wave changes Compared to ECG 06/12/2019 19:14:49 No significant changes Electronically Signed On 01-05-2020 9:01:58 LITIGATION DOCKET MANAGER by Gonzalez Bishop [email or web address] <ELECTRONICALLY SIGNED> By: Gonzalez Bishop MD 01/05/20900 2 2 Gonzalez Bishop MD /EPI
--- NOTE | 2020-01-05 12:29 | NUR ---
TO UNIT BY CART AT 1030, REPORT FROM JUNAID BARGER. HTN NOTED. SOMETIMES SA OFE PER TELE. RIGHT GROIN SITE SOFT, CLEAN AND DRY. BR UNTIL NOON, THEN UP TO BR TO VOID. SITE UNCHANGED. WILL CONTINUE TO FOLLOW CLOSELY.
[2020-01-06] VITALS: BP 163/101
[2020-01-06 04:00] VITALS: BP 150/89
[2020-01-06 04:10] LABS: HEMATOCRIT 47.2 % (42.0-52.0); HEMOGLOBIN 15.2 gm/dL (14.0-18.0); MCH 29.2 pg (26.0-34.0); MCHC 32.2 g/dL (28.0-37.0); MCV 90.7 fL (80.0-100.0); RBC 5.2 mil/uL (4.50-6.00); RDW 16.9 % (10.5-14.5); WBC 12.8 thou/uL (4.0-11.0)
[2020-01-06 04:21] LABS: ALBUMIN 3.3 g/dL (3.4-5.0); ANION GAP 6 mmol/L (7-16); BUN 15 mg/dL (7-18); CALCIUM 8.7 mg/dL (8.5-10.1); CHLORIDE 99 mmol/L (98-107); CO2 30 mmol/L (21-32); GLUCOSE 140 mg/dL (74-106); POTASSIUM 4.2 mmol/L (3.5-5.1); SGOT 11 U/L (15-37); SGPT 16 U/L (30-65); SODIUM 135 mmol/L (136-145); TOTAL BILIRUBIN 0.9 mg/dL (<0.1-1.0); TOTAL PROTEIN 6.5 g/dL (6.4-8.2); TROPONIN-I <0.06 ng/mL (<0.06)
--- NOTE | 2020-01-06 04:24 | NUR ---
ASSUMED PT CARE AT 1900, PT IS ALERT AND ORIENTEDX4, DENIES CHEST PAIN AND SOB, PT IS AFIB ON THE MONITOR, COMPLAINED OF GENERALIZED PAIN, MEDICATED PRN WITH PARTIAL RELIEF, GROIN SITE CLEAN, DRY AND INTACT, NO SIGNS OF HEMATOMA, PT UP ADLIB, STEADY, ASSESSMENTS CHARTED, RESTED WELL, WILL CONTINUE TO MONITOR
[2020-01-06 07:00] VITALS: BP 135/80
[2020-01-06] MEDS ORDERED: EFFIENT10 MG PO (07:43)
[2020-01-06] MEDS ORDERED: LIPITOR40 MG PO (07:43)
--- NOTE | 2020-01-06 08:11 | EKG ---
[facility] [place] [address] ELECTROCARDIOGRAM REPORT Name: MARY BRITO Room #: 211-P ADM [facility] M.R.#: [id number] Admission: 01/05/20 Attend Phys: Israel Eduardo MD, Discharge: Date of : 56 Report #: [id number] THIS REPORT FOR: cc: Jose Arthur MD, Neal A. MD Couchonnal, Luis F. MD ~ THIS REPORT FOR: //name// [facility] Test Date: 2020-01-06 Test Time: 07:31:15 Pat Name: MARY BRITO Department: Room: 211 P Gender: M Drill Grinder: BRITTANEY : 1960 Requested By: Israel Eduardo Order Number: [id number] MD: Truman Miller Measurements Intervals [place] Rate: 66 P: [place]: QRS: -5 QRSD: 95 T: 41 QT: 414 QTc: 434 Interpretive Statements Atrial fibrillation Inferior infarct, old Compared to ECG 01/05/2020 07:23:51 Myocardial infarct finding now present ST (T wave) deviation no longer present Electronically Signed On 01-06-2020 8:10:51 PROCESS DEVELOPMENT CHEMIST by Truman Miller [email or web address] <ELECTRONICALLY SIGNED> By: Truman Miller MD 01/06/20809 0 0 Truman Miller MD /EPI
[2020-01-06 11:30] VITALS: BP 153/68
--- NOTE | 2020-01-06 12:59 | NUR ---
RECEIVED PT'S CARE AROUND 0710; AOX4; R. GROIN AREA C/D/I; NO HEMATOMA; DURING AM ASSESSMENT C/O GENERALIZED PAIN; REFUSED PRN PAIN MEDICATION; AM MEDICATIONS GIVEN; AM MEDICATION WASTE DUE TO PT. DROPPED MEDICATIONS; AFIB ON THE MONITOR; D/C ORDERS ON PLACE; EDUCATED ABOUT D/C PROCESS; ST. UNDERSTANDING; ASSESSMENT CHARGED; FOLLOWED POC;
[2020-01-06 13:05] VITALS: BP 153/68
--- NOTE | 2020-01-07 15:03 | CATHLAB ---
[facility] Mohinder [facility] [employer] [place] [address] INVASIVE PROCEDURE REPORT Name: MARY BRITO Room #: 211-P [facility] Brisa M.RStacy#: [id number] Admission: 01/05/20 Attend Phys: Israel Eduardo MD, Discharge: 01/06/20 Date of : 56 Report #: [id number] THIS REPORT FOR: cc: Jose Arthur MD, Neal A. MD Mancuso, Gerald M. MD [facility] ~ APPROVED REPORT Study performed: 01/05/2020 07:35:34 Patient Details Patient Status: Out-Patient Room #: The patient is a 59 year-old male Event Personnel Israel Eduardo Medical Device Assembler, Yissel Loya RN, Caitlyn Ladd Sandifer, David Monitor Procedures Performed Left Heart Cath w/or w/o Coronaries [id number] [facility] Renal Bilateral Peripheral Angiography [id number] [facility] Place w/wo Plasty Single LAD 882646 Indication Chest pain Procedure Narrative The Right Groin^ was infiltrated with 1% Lidocaine subcutaneous anesthesia. A PINNACLE 6FR Sheath #[id number] sheath was inserted into the RFA^. Coronary angiography was performed using coronary diagnostic catheters. The right coronary system was accessed and visualized with a JR4 catheter. The left coronary system was accessed and visualized with a JL4 catheter. The left ventricle was accessed and visualized with a PIGTAIL catheter. Left ventricular/Aortic Valve gradient assessed via catheter pullback. Left ventriculogram was performed in 30 degree projection. Closure device was deployed with a 6 Fr MYNX. The patient tolerated the procedure well and there were no complications associated with the procedure. There was no hematoma. Intraoperative Conscious Sedation Sedation start time: 7.57 Case end Time: 8.54 Fentanyl 150 mcg Versed 2 mg [facility] [place] [address] INVASIVE PROCEDURE REPORT Name: JORGERENETTAMARY Grey KAVITHA Room #: 211-P [facility] IN M.R.#: [id number] Admission: 01/05/20 Attend Phys: Israel Eduardo, Discharge: 01/06/20 Date of : 56 Report #: [id number] Fluoro Time: 9.43 minutes Dose: DAP 62640.00 cGycm2 1923 mGy Contrast Type and Amount: Omnipaque 210 ml Hemodynamics The aortic pressure is 168/92 mmHg with a mean of 109 mmHg. The left ventricular pressure is 173/17 mmHg with a mean of mmHg. The left ventricular end diastolic pressure is 26 mmHg. There was no gradient across the aortic valve upon pullback. Pullback from the left ventricle to the aorta revealed no gradient across the aortic valve. PCI Technique Lesion Percutaneous coronary intervention was performed on the proximal left anterior descending artery segment. A LAUNCHER 6FR EBU 4 #[id number] Guide Catheter was used to engage the ostium. A Luge Wire .014 x 182CM #[id number] Interventional Guidewire was used to cross the lesion. BALLOON DILATION A Balloon catheter Sprinter OTW 2.5 x 12 #[id number] was inserted and inflated up to 8.00atm for 20seconds. Additional Inflation: 10.00atm for 16seconds. STENT DEPLOYMENT A drug-eluting stent RESOLUTE SURAJ OTW 2.75 X 15 #[id number] was inserted and inflated up to 13.00atm for 22seconds. Additional Inflation: 10.00atm for 11seconds. Additional Inflation: 17.00atm for 25seconds. POST STENT DEPLOYMENT BALLOON DILATION A Balloon catheter TREK NC OTW 3.0 X 12 #[id number] was inserted and inflated up to 16.00atm for 20seconds. Additional Inflation: 16.00atm for 14seconds. Conclusion #1 successful PTCA stent of a proximal high-grade lesion in the LAD 98% to 0% with placement of a 2.75 x 15 [place] resolute stent. Postdilated 3.1 mm with noncompliant balloon ERWIN grade 3 flow no dissection or thrombus formation. #2 mild left main disease with mild calcification giving rise to LAD and circumflex #3 large dominant circumflex OM with only mild irregularity. No occlusive disease. Proximal calcification is noted. #4 small nondominant right coronary artery widely patent [address] [address] INVASIVE PROCEDURE REPORT Name: MARY BRITO Room #: 211-P [facility] M.R.#: [id number] Admission: 01/05/20 Attend Phys: Israel Eduardo, Discharge: 01/06/20 Date of : 56 Report #: [id number] #5 right renal artery single widely patent #6 left renal artery with a large main branch and then a proximal branch which has an eccentric 90% lesion also is moderate distribution previously noted will follow. #6 normal left ventricular size with subtle anterior apical wall leg EF 50% range Recommendations and plan: Continue aggressive risk factor modification. Excellent result in proximal LAD lesion. Transfer to CCU in stable condition. Continue dual antiplatelet therapy. <ELECTRONICALLY SIGNED> By: Israel Eduardo MD, FACC 01/07/20 1502 01 01 Israel Eduardo MD, FACC /INF
== END 2020-01-06 13:25 | disposition home or self-care (01) ==
LOC: CATH 06:33 → 2N 10:45 → CATH 20:24 → ENTRNSPT 01-06 13:20 → 2N 01-06 13:25
PROVIDERS: ADMIT Internal Medicine Cardiovascular Disease
DX: I25.118 Atherosclerotic heart disease of native coronary artery with other forms of angina pectoris (principal); I10 Essential (primary) hypertension; E78.00 Pure hypercholesterolemia, unspecified; I48.21 Permanent atrial fibrillation; G89.29 Other chronic pain

== ENCOUNTER → 2020-06-15 | Outpatient (CLI) | payer OTHER ==
[~2020-06-15] MED LIST changes: +EFFIENT10 MG PO; +LIPITOR40 MG PO
== END ==
LOC: SJCVCIMAG 09:43
PROVIDERS: ATTEND Internal Medicine Cardiovascular Disease
DX: I08.2 Rheumatic disorders of both aortic and tricuspid valves (principal); I48.91 Unspecified atrial fibrillation; I11.9 Hypertensive heart disease without heart failure; R53.83 Other fatigue; E78.5 Hyperlipidemia, unspecified; I25.10 Atherosclerotic heart disease of native coronary artery without angina pectoris; E11.9 Type 2 diabetes mellitus without complications; Z88.8 Allergy status to other drugs, medicaments and biological substances; Z98.61 Coronary angioplasty status

== ENCOUNTER → 2020-08-26 | Outpatient (CLI) | payer OTHER ==
[2020-08-26 10:40] LABS: URINE BILIRUBIN NEGATIVE (Negative); URINE BLOOD NEGATIVE (Negative); URINE CLARITY CLEAR; URINE COLOR YELLOW; URINE GLUCOSE-RANDOM* NEGATIVE (Negative); URINE KETONES NEGATIVE (Negative); URINE LEUKOCYTES-REFLEX NEGATIVE (Negative); URINE NITRITE-REFLEX NEGATIVE (Negative); URINE PROTEIN (DIPSTICK) NEGATIVE (Negative); URINE SPECIFIC GRAVITY 1.015 (1.005-1.035); URINE UROBILINOGEN 0.2 E.U./dl (0.2-1.0)
[2020-08-26 10:42] LABS: ABSOLUTE NEUTROPHILS 10.8 thou/uL (1.4-8.2); BASOPHILS 0.4 % (0.0-2.0); EOSINOPHILS 0.6 % (0.0-3.0); HEMATOCRIT 43.9 % (42.0-52.0); HEMOGLOBIN 13.7 gm/dL (14.0-18.0); LYMPHOCYTES 6.8 % (24.0-44.0); MCH 28.1 pg (26.0-34.0); MCHC 31.3 g/dL (28.0-37.0); MCV 89.7 fL (80.0-100.0); MONOCYTES 7.1 % (1.0-8.0); PLATELET COUNT 220 thou/uL (150-400); POLYS 85.1 % (36.0-66.0); RDW 17.6 % (10.5-14.5); WBC 12.7 thou/uL (4.0-11.0)
[2020-08-26 11:01] LABS: ALBUMIN 3.6 g/dL (3.4-5.0); CALCIUM 8.5 mg/dL (8.5-10.1); POTASSIUM 4.2 mmol/L (3.5-5.1); TOTAL BILIRUBIN 0.5 mg/dL (0.2-1.0); TOTAL PROTEIN 6.5 g/dL (6.4-8.2)
[2020-08-26 20:06] LABS: PSA 0.8 ng/mL (0.0-4.0); TESTOSTERONE* 439 ng/dL (264-916)
[2020-08-27 02:06] LABS: GLYCOHEMOGLOBIN (HGB A1C) 6.8 % (4.8-5.6)
== END ==
LOC: LAB 09:32
PROVIDERS: ATTEND Family Medicine
DX: E29.1 Testicular hypofunction (principal); E11.9 Type 2 diabetes mellitus without complications; I48.21 Permanent atrial fibrillation; I10 Essential (primary) hypertension

== ENCOUNTER → 2020-09-14 | Outpatient (CLI) | payer OTHER ==
[2020-09-14 11:08] LABS: URIC ACID* 4.9 mg/dL (3.5-7.2)
== END ==
LOC: LAB 10:17
PROVIDERS: ATTEND Nurse Practitioner Family
DX: E55.9 Vitamin D deficiency, unspecified (principal); M79.7 Fibromyalgia; M1A.09X0 Idiopathic chronic gout, multiple sites, without tophus (tophi)

== ENCOUNTER 2020-10-21 06:26 | Observation (INO) | payer OTHER ==
[~2020-10-21] VITALS: Ht 170.2 cm; Wt 110.7 kg
[2020-10-21] VITALS (11 sets, daily range): BP systolic 125–162; BP diastolic 72–106
[2020-10-21 07:35] LABS: HEMATOCRIT 39.7 % (42.0-52.0); HEMOGLOBIN 12.6 gm/dL (14.0-18.0); MCH 27.8 pg (26.0-34.0); MCHC 31.8 g/dL (28.0-37.0); MCV 87.5 fL (80.0-100.0); RBC 4.54 mil/uL (4.50-6.00); RDW 16.6 % (10.5-14.5); WBC 11.3 thou/uL (4.0-11.0)
[2020-10-21] MEDS ORDERED: LIVALO4 MG PO (07:40)
[2020-10-21 07:45] LABS: CALCIUM 8.7 mg/dL (8.5-10.1); CREATININE 1.1 mg/dL (0.7-1.3); POTASSIUM 4.1 mmol/L (3.5-5.1)
[2020-10-21] MEDS ORDERED: CALCIUM 600-D31 EACH PO (07:50)
[2020-10-21] MEDS ORDERED: KLOR-CON 1010 MEQ PO (07:57)
--- NOTE | 2020-10-21 08:33 | EKG ---
[facility] [address] [place] [address] ELECTROCARDIOGRAM REPORT Name: MARY BRITO Room #: REG [facility] M.R.#: [id number] Admission: 10/21/20 Attend Phys: Israel Eduardo MD, Discharge: Date of : 56 Report #: [id number] THIS REPORT FOR: cc: Jose Arthur MD, Neal A. MD Couchonnal, Luis F. MD ~ <ELECTRONICALLY SIGNED> By: Truman Miller MD 10/21/20 0832 0 Truman Miller MD /EPI
--- NOTE | 2020-10-21 17:07 | NUR ---
NEW ADMIT FROM CRYPTOGRAPHER STENT TO PROX LED. RIGHT DIPTI SIGHT WITH MINX DRESSING C/D/I. COMPLETED 3HR BEDREST. UP TO BATHROOM WITH STAND BY ASSIST. ALERTX4, DENIES PAIN, DENIES SOB. CONTROLLED AFIB ON MONITOR. BILATERAL EDEMA TO ANKLES AND FEET. PERSONAL ITEMS IN REACH. POST CARDIAC PROCEDURE VSS PER PROTOCOL. CALLS FOR ASSISTANCE. DC HOME TOMORROW.
--- NOTE | 2020-10-21 17:16 | CATHLAB ---
[facility] Mohinder [place] [address] INVASIVE PROCEDURE REPORT Name: MARY BRITO Room #: 203-P ADM Brisa M.RStacy#: [id number] Admission: 10/21/20 Attend Phys: Israel Eduardo MD, Discharge: Date of : 56 Report #: [id number] THIS REPORT FOR: cc: Jose Arthur MD, Neal A. MD Mancuso, Gerald M. MD [facility] ~ APPROVED REPORT Study performed: 10/21/2020 07:34:33 Patient Details Patient Status: Out-Patient Room #: The patient is a 60 year-old male Event Personnel Israel Eduardo Road Commissioner, Randy Roberts RN RN, Caitlyn Ladd Jackson, Sherra RTIvis Monitor Procedures Performed Art Access - R femoral artery* Left Heart Cath w/or w/o Coronaries [id number] [facility] JONNATHAN Place w/wo Plasty Single LAD 015975 44788 Initial Mod Sed Same Phys/QHP Gr5y 983686 19178 Mod Sed Same Phys/QHP Ea 395728 Hemostasis w/ Mynx Indication Chest pain Procedure Narrative The Right Groin^ was infiltrated with 1% Lidocaine subcutaneous anesthesia. A PINNACLE 6FR Sheath #[id number] sheath was inserted into the RFA^. Coronary angiography was performed using coronary diagnostic catheters. The right coronary system was accessed and visualized with a JR4 catheter. The left coronary system was accessed and visualized with a JL4 catheter. The left ventricle was accessed and visualized with a PIGTAIL catheter. Left ventriculogram was performed in 30 degree projection. Closure device was deployed with a 6 Fr MYNXGRIP 6/7F #[id number]. The patient tolerated the procedure well and there were no complications associated with the procedure. There was no hematoma. Intraoperative Conscious Sedation Sedation start time: 1158 Case end Time: 1257 Fentanyl 75 mcg Versed 2 mg [facility] [place] [address] INVASIVE PROCEDURE REPORT Name: MARY BRITO Room #: 203-P [facility] IN ..#: [id number] Admission: 10/21/20 Attend Phys: Israel Eduardo, Discharge: Date of : 56 Report #: [id number] Fluoro Time: 10.50 minutes Dose: DAP 43351.40 cGycm2 3778 mGy Contrast Type and Amount: Omnipaque 210 ml Hemodynamics The aortic pressure is 170/97 mmHg with a mean of 119 mmHg. The left ventricular pressure is 165/15 mmHg with a mean of mmHg. The left ventricular end diastolic pressure is 22 mmHg. PCI Technique Lesion Percutaneous coronary intervention was performed on the proximal left anterior descending artery segment. A LAUNCHER 6FR EBU 4 #254427 Guide Catheter was used to engage the ostium. A Luge Wire .014 x 182CM #[id number] Interventional Guidewire was used to cross the lesion. BALLOON DILATION A Balloon catheter Sprinter OTW 2.5 x 12 #[id number] was inserted and inflated up to 8.00atm for 19seconds. Additional Inflation: 14.00atm for 20seconds. STENT DEPLOYMENT A drug-eluting stent RESOLUTE SURAJ OTW 3.0 X 8 #[id number] was inserted and inflated up to 14.00atm for 34seconds. POST STENT DEPLOYMENT BALLOON DILATION A Balloon catheter TREK NC OTW 3.25 X 15 #[id number] was inserted and inflated up to 16.00atm for 36seconds. Additional Inflation: 16.00atm for 22seconds. Conclusion #1. Successful PTCA stent of a ostial proximal LAD subtotal lesion which extended just into a previously placed stent with moderate restenosis with the distal two thirds of that stent widely patent. 3 oh by 8 resolute postdilated 3.4 mm right at the takeoff of the left main wide patency ERWIN grade III flow #2 left main mildly disease giving rise to LAD and circumflex and ramus branch. #3 a ramus intermedius branch is 40 to 50% proximal narrowing right off of the left main. #4 for a large dominant left circumflex artery is widely patent #5 small dominant right coronary artery #6 normal left jugular size and subtle anterior wall leg EF 50% range. #7 abdominal aortogram revealing mild aortic ectasia but no aneurysm [facility] [address] [place] [address] INVASIVE PROCEDURE REPORT Name: MARY BRITO Room #: 203-P [facility] IN M.R.#: [id number] Admission: 10/21/20 Attend Phys: Israel Eduardo, Discharge: Date of : 56 Report #: [id number] is noted. Mild plaquing is noted. Possible stenosis and bifurcating left renal artery. Recommendations and plan: Continue aggressive risk factor modification. Dual antiplatelet therapy will be added at least for short-term to anticoagulation. Permanent underlying A. fib. Will utilize triple therapy x1 month and then single platelet medication with DOAC. Patient pain-free transfer to CCU to follow post coronary stent protocol. <ELECTRONICALLY SIGNED> By: Israel Eduardo MD, FACC 10/21/201715 15 15 Israel Eduardo MD, FACC /INF
[2020-10-22 01:00] VITALS: BP 159/77
[2020-10-22 03:40] VITALS: BP 131/92
[2020-10-22 05:38] LABS: HEMATOCRIT 40.9 % (42.0-52.0); HEMOGLOBIN 13.2 gm/dL (14.0-18.0); MCH 28.3 pg (26.0-34.0); MCHC 32.2 g/dL (28.0-37.0); MCV 87.9 fL (80.0-100.0); RBC 4.65 mil/uL (4.50-6.00); WBC 10.2 thou/uL (4.0-11.0)
[2020-10-22 05:48] LABS: ALBUMIN 3.2 g/dL (3.4-5.0); CALCIUM 8.6 mg/dL (8.5-10.1); CREATININE 1.1 mg/dL (0.7-1.3); POTASSIUM 3.5 mmol/L (3.5-5.1); TOTAL BILIRUBIN 0.8 mg/dL (0.2-1.0); TOTAL PROTEIN 5.9 g/dL (6.4-8.2); TROPONIN-I 0.11 ng/mL (<0.06)
--- NOTE | 2020-10-22 07:33 | EKG ---
[facility] [address] [place] [address] ELECTROCARDIOGRAM REPORT Name: MARY BRITO Room #: 203-P ADM Brisa M.R.#: [id number] Admission: 10/21/20 Attend Phys: Israel Eduardo MD, Discharge: Date of : 56 Report #: [id number] THIS REPORT FOR: cc: Jose Arthur MD, Neal A. MD Santiago, Patrick MD FACC ~ <ELECTRONICALLY SIGNED> By: Lizandro Mckee MD, FACC 10/22/20 0732 4 Lizandro Mckee MD, FACC /EPI
[2020-10-22] MEDS ORDERED: CHILDREN'S ASPI81 M1 PO (07:39)
[2020-10-22 08:12] VITALS: BP 137/90
--- NOTE | 2020-10-22 08:24 | NUR ---
ASSUMED CARE OF PATIENT AT 1900; AOX4 AND STEADY ON AMBULATION; LEFT HEART CATH WITH RT GROIN SITE C/D/I AND NO C/O OF CHEST PAIN; AFIB/CONTROLLED ON THE MONITOR WITH HEART RATE 60-70s; PLAN IS FOR PATIENT TO D/C TO HOME TODAY.
[2020-10-22 10:45] VITALS: BP 137/90
--- NOTE | 2020-10-22 11:14 | NUR ---
PT WAS EDUCATED ON DISCHARGE PACKET REGARDING POST CATH ACTIVITY. BOTH PT AND PRESENT FOR EDUCATION. DISCUSSED INFECTION CONTROL BY NOT SUBMERGING WOUND IN WATER, SUCH POOL OR BATH, BUT SHOWER IS OKAY. ACTIVITY TOLERATED WITH NO HEAVY LIFTING. DISCUSSED MEDICATIONS, HE TOOK HOME MEDS ON 10/22/2020 AT 0630. EXPLAINED THE RISK OF OVER MEDICATING WITH HOME MED USE WHILE IN THE HOSPITAL. PT AND COMMUNICATED UNDERSTANDING.
== END 2020-10-22 11:26 | disposition home or self-care (01) ==
LOC: CATH 06:26 → 2N 13:57
PROVIDERS: Nurse Practitioner Adult Health; ADMIT Internal Medicine Cardiovascular Disease; ATTEND Internal Medicine Cardiovascular Disease
DX: I25.10 Atherosclerotic heart disease of native coronary artery without angina pectoris (principal); I10 Essential (primary) hypertension; E11.9 Type 2 diabetes mellitus without complications; E78.00 Pure hypercholesterolemia, unspecified; I48.21 Permanent atrial fibrillation; Z79.82 Long term (current) use of aspirin; Z79.899 Other long term (current) drug therapy

== ENCOUNTER → 2020-11-08 | Outpatient (CLI) | payer OTHER ==
[~2020-11-08] MED LIST changes: +CALCIUM 600-D31 EACH PO; +CHILDREN'S ASPI81 M1 PO; +LIVALO4 MG PO
[2020-11-08 16:38] LABS: ABSOLUTE NEUTROPHILS 14.2 thou/uL (1.4-8.2); BASOPHILS 0.3 % (0.0-2.0); HEMATOCRIT 35.7 % (42.0-52.0); HEMOGLOBIN 11.3 gm/dL (14.0-18.0); LYMPHOCYTES 3.4 % (24.0-44.0); MCH 27.8 pg (26.0-34.0); MCHC 31.7 g/dL (28.0-37.0); MCV 87.7 fL (80.0-100.0); MONOCYTES 6.1 % (1.0-8.0); PLATELET COUNT 288 thou/uL (150-400); POLYS 90.2 % (36.0-66.0); RBC 4.07 mil/uL (4.50-6.00); RDW 17.5 % (10.5-14.5); WBC 15.7 thou/uL (4.0-11.0)
[2020-11-09 01:06] LABS: GLYCOHEMOGLOBIN (HGB A1C) 6.5 % (4.8-5.6)
== END ==
LOC: LAB 16:05
PROVIDERS: ATTEND Family Medicine
DX: E11.9 Type 2 diabetes mellitus without complications (principal)

== ENCOUNTER → 2020-11-19 | Outpatient (CLI) | payer OTHER | LOC: SJCVCIMAG 10:24 | PROVIDERS: ATTEND Internal Medicine Cardiovascular Disease | DX: M79.604 Pain in right leg (principal); M79.89 Other specified soft tissue disorders ==

== ENCOUNTER → 2020-11-22 | Outpatient (CLI) | payer OTHER | LOC: HYPER 13:45 | PROVIDERS: ATTEND Emergency Medicine | DX: I87.331 Chronic venous hypertension (idiopathic) with ulcer and inflammation of right lower extremity (principal); I70.232 Atherosclerosis of native arteries of right leg with ulceration of calf; L97.211 Non-pressure chronic ulcer of right calf limited to breakdown of skin; I70.233 Atherosclerosis of native arteries of right leg with ulceration of ankle; L97.311 Non-pressure chronic ulcer of right ankle limited to breakdown of skin; I70.238 Atherosclerosis of native arteries of right leg with ulceration of other part of lower leg; L97.811 Non-pressure chronic ulcer of other part of right lower leg limited to breakdown of skin; R60.0 Localized edema; G89.29 Other chronic pain; I74.9 Embolism and thrombosis of unspecified artery; I99.8 Other disorder of circulatory system; I48.20 Chronic atrial fibrillation, unspecified; I42.9 Cardiomyopathy, unspecified; E78.5 Hyperlipidemia, unspecified; K21.9 Gastro-esophageal reflux disease without esophagitis; M10.9 Gout, unspecified; F41.1 Generalized anxiety disorder; Z79.82 Long term (current) use of aspirin; Z79.52 Long term (current) use of systemic steroids; Z79.01 Long term (current) use of anticoagulants; Z96.651 Presence of right artificial knee joint ==

== ENCOUNTER 2021-01-03 21:22 | Emergency (ER) | payer OTHER ==
[~2021-01-03] VITALS: Ht 170.2 cm; Wt 111.1 kg
[2021-01-04 02:37] VITALS: BP 151/68
== END 2021-01-04 02:38 | disposition home or self-care (01) ==
LOC: ER 21:22
DX: L97.919 Non-pressure chronic ulcer of unspecified part of right lower leg with unspecified severity (principal); I48.91 Unspecified atrial fibrillation; J45.909 Unspecified asthma, uncomplicated; I10 Essential (primary) hypertension; E78.5 Hyperlipidemia, unspecified; E11.9 Type 2 diabetes mellitus without complications; M10.9 Gout, unspecified; Z79.899 Other long term (current) drug therapy; Z88.1 Allergy status to other antibiotic agents; Z88.5 Allergy status to narcotic agent; Z88.8 Allergy status to other drugs, medicaments and biological substances

== ENCOUNTER → 2021-01-05 | Outpatient (CLI) | payer OTHER ==
[~2021-01-05] MED LIST changes: +BYSTOLIC 5 MG5 MG PO
== END ==
LOC: HYPER 13:15
PROVIDERS: ATTEND Emergency Medicine
DX: I87.331 Chronic venous hypertension (idiopathic) with ulcer and inflammation of right lower extremity (principal); I70.232 Atherosclerosis of native arteries of right leg with ulceration of calf; L97.211 Non-pressure chronic ulcer of right calf limited to breakdown of skin; R60.0 Localized edema; G89.29 Other chronic pain; I74.9 Embolism and thrombosis of unspecified artery; I99.8 Other disorder of circulatory system; I48.20 Chronic atrial fibrillation, unspecified; I42.9 Cardiomyopathy, unspecified; E78.5 Hyperlipidemia, unspecified; K21.9 Gastro-esophageal reflux disease without esophagitis; M10.9 Gout, unspecified; F41.1 Generalized anxiety disorder; Z79.82 Long term (current) use of aspirin; Z79.52 Long term (current) use of systemic steroids; Z79.01 Long term (current) use of anticoagulants; Z96.651 Presence of right artificial knee joint

== ENCOUNTER → 2021-01-06 | Outpatient (CLI) | payer OTHER | LOC: HYPER 10:19 | PROVIDERS: ATTEND Emergency Medicine | DX: I87.331 Chronic venous hypertension (idiopathic) with ulcer and inflammation of right lower extremity (principal); I70.232 Atherosclerosis of native arteries of right leg with ulceration of calf; L97.211 Non-pressure chronic ulcer of right calf limited to breakdown of skin; R60.0 Localized edema; G89.29 Other chronic pain; I74.9 Embolism and thrombosis of unspecified artery; I99.8 Other disorder of circulatory system; I48.20 Chronic atrial fibrillation, unspecified; I42.9 Cardiomyopathy, unspecified; E78.5 Hyperlipidemia, unspecified; K21.9 Gastro-esophageal reflux disease without esophagitis; M10.9 Gout, unspecified; F41.1 Generalized anxiety disorder; Z79.82 Long term (current) use of aspirin; Z79.52 Long term (current) use of systemic steroids; Z79.01 Long term (current) use of anticoagulants; Z96.651 Presence of right artificial knee joint ==

== ENCOUNTER 2021-01-07 19:30 | Inpatient (IN) | payer OTHER ==
[~2021-01-07] VITALS: Ht 170.2 cm; Wt 106.3 kg
--- NOTE | ~2021-01-07 | HC ---
[facility] [place] [address] CONSULTATION Name: MARY BRITO Room #: 439-P [place] IN M.R.#: [id number] Admission: 01/07/21 Attend Phys: Jose Arthur MD Discharge: 01/08/21 Date of : 56 Report #: [id number] THIS REPORT FOR: cc: Jose Arthur MD, Neal A. MD [place],Kiel Bobo MD [facility] DATE OF SERVICE: 01/07/2021 REFERRING PROVIDER: Jose Arthur MD REASON FOR CONSULTATION: Bleeding, right lower extremity wound. HISTORY OF PRESENT ILLNESS: The patient is a 60-year-old male who takes both Eliquis and Effient for cardiovascular stents and cannot go off of either due to clotting. The patient has sustained a right lower extremity pretibial wound a couple of months ago and has had multiple bleeding episodes from this wound. The most recent one happened when he was dangling his leg at dinner a couple days ago. The patient's wound was cauterized with handheld heat cautery to some effect; however, has had recurrent hemorrhage and as such has been admitted and I am now asked to evaluate from a surgical standpoint for definitive management. PAST MEDICAL HISTORY: Coronary artery disease, status post stenting, hypertension, hyperlipidemia, atrial fibrillation, chronic venous insufficiency, and gout. HOME MEDICATIONS: [place], calcium, vitamin D3, Bystolic, Benicar, prednisone, clonazepam, amlodipine, Lasix, testosterone, metformin, Eliquis, Effient, potassium, gabapentin, and allopurinol. ALLERGIES: ALKYLAMINE, EPINEPHRINE, MORPHINE, STATINS, AND ERYTHROMYCIN. FAMILY HISTORY: Reviewed and noncontributory. SOCIAL HISTORY: The patient denies any alcohol, tobacco, or illicit drug use. REVIEW OF SYSTEMS: GENERAL: The patient denies nocturnal fevers or chills. HEENT: No change in vision, change in hearing. NECK: No swelling or difficulty swallowing. HEART: No chest pain or palpitations. LUNGS: No cough or shortness of breath. ABDOMEN: No nausea, no vomiting. GENITOURINARY: No dysuria or hematuria. ENDOCRINE: No polyuria or polydipsia. [facility] [address] [place] [address] CONSULTATION Name: MARY BRITO Room #: 439-P [place] IN M.R.#: [id number] Admission: 01/07/21 Attend Phys: Jose Arthur MD Discharge: 01/08/21 Date of : 56 Report #: [id number] HEMATOLOGIC: No history of easy bruising, but does have a history of bleeding from his wound. EXTREMITIES: No history of weakness or limited range of motion. NEUROLOGIC: No history of syncope or near syncopal episodes. PSYCHIATRIC: No history of anxiety or depression. SKIN AND INTEGUMENT: History of a nonhealing right lower extremity pretibial wound. PHYSICAL EXAMINATION: VITAL SIGNS: Temperature 98.8, pulse 82, respirations 18, blood pressure 132/82. GENERAL: Alert and oriented, in no acute distress. HEENT: Normocephalic, atraumatic. Pupils equal, round, reactive to light. NECK: Supple, without lymphadenopathy. Trachea midline. HEART: Regular rate and rhythm. LUNGS: Clear to auscultation bilaterally. ABDOMEN: Soft, nontender, nondistended. Positive bowel sounds. GENITOURINARY: Normal external male genitalia. EXTREMITIES: No clubbing, cyanosis, or edema. NEUROLOGIC: Cranial nerves 2-12 are grossly intact. HEENT AND X-RAY: Normal mood and affect. SKIN AND INTEGUMENT: Right lower extremity pretibial wound shows an approximate 4 cm longitudinal x 2 cm transverse excoriated hemorrhagic wound with current hemostasis. There appears to be denuded nonviable tissue throughout the bed of the wound. LABORATORY AND X-RAY DATA: CBC shows white blood cell count of 10.9 thousand, hemoglobin 11.4, platelets 225,000. His creatinine is 1.5. Liver function enzymes are normal. His albumin is 3.1. ASSESSMENT AND PLAN: A 60-year-old male with a nonhealing right lower extremity pretibial wound that shows denton-wound necrosis and recent hemorrhage. At this time, his wound is hemostatic. We will leave it dressed for the evening. I will recheck it tomorrow; and if there was one site of overt bleeding identified, I may be able to just place a suture for control. After review of the wound, however, my suspicion is he will do better with a formal definitive debridement in the operating room, but will discuss with the wound care service tomorrow. I sincerely appreciate this consult and will leave any further recommendations in the patient's chart as appropriate. By: [id number] Kiel Grove MD, FACS /nt
[~2021-01-07 19:30] MED LIST changes: -BYSTOLIC 5 MG5 MG PO
[2021-01-07 19:40] VITALS: BP 139/77
[2021-01-07 23:32] LABS: HEMOGLOBIN 11.4 gm/dL (14.0-18.0); WBC 10.9 thou/uL (4.0-11.0)
[2021-01-07 23:34] LABS: ABSOLUTE NEUTROPHILS 8.7 thou/uL (1.4-8.2); BASOPHILS 0.9 % (0.0-2.0); EOSINOPHILS 0.2 % (0.0-3.0); HEMATOCRIT 35.9 % (42.0-52.0); LYMPHOCYTES 10.5 % (24.0-44.0); MCH 26.5 pg (26.0-34.0); MCHC 31.7 g/dL (28.0-37.0); MCV 83.4 fL (80.0-100.0); MONOCYTES 8.4 % (1.0-8.0); PLATELET COUNT 225 thou/uL (150-400); RDW 17.4 % (10.5-14.5)
[2021-01-07 23:41] LABS: CALCIUM 8.5 mg/dL (8.5-10.1); CREATININE 1.5 mg/dL (0.7-1.3)
[2021-01-07] MEDS ORDERED: NORCO 10-325 T1 EACH PO ×2 (23:44)
[2021-01-07] MEDS ORDERED: BYSTOLIC 5 MG5 MG PO ×2 (23:47)
[2021-01-07 23:48] LABS: ALBUMIN 3.1 g/dL (3.4-5.0); TOTAL BILIRUBIN 0.4 mg/dL (0.2-1.0); TOTAL PROTEIN 6.2 g/dL (6.4-8.2)
[2021-01-07] MEDS ORDERED: BENICAR40 MG PO ×2 (23:48)
[2021-01-08 06:08] VITALS: BP 139/77
--- NOTE | 2021-01-08 06:09 | NUR ---
HANDOFF SENT TO 4N
[2021-01-08 06:30] VITALS: BP 139/77
--- NOTE | 2021-01-08 07:45 | NUR ---
Pt arrived to unit at around 0630 from ER. Pt brought via w/chair. Settled into room, oriented to room, staff and use of call light. Pt denies pain.Drsg intact to RLE with no signs of bleeding. Report given to Jay QUIROGA.
[2021-01-08 08:00] VITALS: BP 155/100
[2021-01-08 12:41] VITALS: BP 155/100
--- NOTE | 2021-01-08 12:49 | NUR ---
Pt arrived to floor at 0630 per shift supervisor film processing report but waiting to bed admitted by day shift rn.Assumed pt care at 7am.Pt in bed resting with drsg to rt lower leg.Assessment hx and care =plan completed.Dr Arthur here,order noted. Pt kept npo till seen by surgeon.Around 1130,Dr Grove and Leonarda rounded on pt.Surgery scheduled for sundayjanuary [address] Arthur notified and dc order received.Pt informed about dc home today.Dc summary compleie and reviewed with pt and spouse.Saline lock dc'd.Pt will dc home in [place] with before 1300.
--- NOTE | 2021-01-09 14:11 | EKG ---
[address] [address] ELECTROCARDIOGRAM REPORT Name: MARY BRITO Room #: 439- DIS IN M.R.#: [id number] Admission: 01/07/21 Attend Phys: Jose Arthur MD Discharge: 01/08/21 Date of : 56 Report #: [id number] [facility] Test Date: 2021-01-08 Test Time: 09:34:32 Pat Name: MARY BRITO Department: Room: 439 Gender: M Checker Product Design: CAROL : 1960 Requested By: Michelle Spencer Order Number: [id number] MD: Samson Lugo Measurements Intervals [place] Rate: 69 P: [place]: QRS: 11 QRSD: 90 T: 35 QT: 403 QTc: 432 Interpretive Statements Atrial fibrillation Abnormal R-wave progression, early transition Baseline wander in lead(s) V1,V4 Compared to ECG 10/22/2020 07:15:47 Early R wave progression now present Electronically Signed On 01-09-2021 14:11:02 REFRIGERATING TECHNICIAN by Samson Lugo [email or web address] <ELECTRONICALLY SIGNED> By: Samson Lugo MD, [facility] 01/09/21 1411 0934 0934 Samson Lugo MD, [facility] /EPI
--- NOTE | 2021-01-10 16:35 | HC ---
[facility] [place] [address] CONSULTATION Name: MAYR BRITO Room #: 439-P [place] IN M.R.#: [id number] Admission: 01/07/21 Attend Phys: Jose Arthur MD Discharge: 01/08/21 Date of : 56 Report #: [id number] THIS REPORT FOR: cc: Jose Arthur MD, Neal A. MD [place],Flaquito Jones MD ~ DATE OF SERVICE: 01/08/2021 CHIEF COMPLAINT: Bleeding and ulceration to the right lower leg. HISTORY OF PRESENT ILLNESS: This is a 60-year-old male patient who has been followed by my partner, Dr. Clemens, in the clinic with a chronic ulceration to his right lower leg. The area began bleeding and it was difficult to control. He was advised to go to the Emergency Department, who had a compressive dressing applied last night and was admitted to the hospital for persistent bleeding. General Surgery was consulted. I did discuss the case with the emergency physician last night over the phone. PAST MEDICAL HISTORY: Positive for history of permanent atrial fibrillation, cardiomyopathy, chronic pain, adrenal insufficiency, hyperlipidemia, gout, history of rheumatoid arthritis, total right knee replacement. SOCIAL HISTORY: Negative for tobacco or drug use, accompanied by his . MEDICATIONS: Include allopurinol, amlodipine, Eliquis, calcium, clonazepam, furosemide, gabapentin, hydrocodone, metformin, Bystolic, Benicar, potassium, Effient, prednisone, Depo-Testosterone. ALLERGIES: ANTIHISTAMINES, ALKYLAMINES, STATINS, MORPHINE, EPINEPHRINE, ERYTHROMYCIN. SOCIAL HISTORY: Negative for alcohol or tobacco use. She is , accompanied by his . FAMILY HISTORY: Noncontributory. REVIEW OF SYSTEMS: CONSTITUTIONAL: The patient denies fever, chills, or weight loss. NEUROLOGICAL: The patient denies focal weakness, numbness or tingling. EYES: The patient denies visual changes, redness, or drainage. ENT: The patient denies earache, nasal drainage or sore throat. CARDIOVASCULAR: Anginal pain, palpitations or diaphoresis. PULMONARY: The patient denies cough or shortness of breath. GASTROINTESTINAL: The patient denies nausea, vomiting, diarrhea or abdominal pain. [address] [address] CONSULTATION Name: MAYR BRITO Room #: 439-P [facility] IN M.R.#: [id number] Admission: 01/07/21 Attend Phys: Jose Arthur MD Discharge: 01/08/21 Date of : 56 Report #: [id number] ORTHOPEDIC: The patient has bleeding and ulceration to the right lower leg. Other systems in 14-point review of systems are negative. PHYSICAL EXAMINATION: VITAL SIGNS: At this time include temperature 36.4, pulse 61, respiratory rate of 12, blood pressure 135/100. GENERAL: This is a well-developed, well-nourished patient, who appears to be in no distress. HEENT: Head normocephalic. Nose looks normal. Nose and throat are clear. NECK: Supple. LUNGS: Clear. ABDOMEN: Soft. EXTREMITIES: Demonstrate trace edema. There is a dressing in place. I have reviewed findings with Dr. Grove as well as reviewed photos of the ulceration. It has a dark granulating, but dark base. We are not going to disturb the dressing again now that he has an anticoagulation material on the surface and I did not wish to start the bleeding again. CLINICAL IMPRESSION: 1. Chronic ulceration to the right lower extremity with persistent bleeding. 2. Permanent atrial fibrillation, requiring anticoagulation. 3. Hypertension. 4. Coronary artery disease. RECOMMENDATIONS: At this point in time, we will leave the dressing intact. He is going to follow up with Dr. Grove either on Sunday or Sunday of this coming week for a Misonix type debridement and then definitive control of any bleeding areas. He may benefit from a tissue substitute in the future. We will have him continue to follow up in the [facility] for ongoing monitoring and evaluation and wound care. <ELECTRONICALLY SIGNED> By: Flaquito Brower MD 01/10/21 1635 1300 1814 Flaquito Brower MD /nt
== END 2021-01-08 13:26 | disposition home or self-care (01) | DRG 300 ==
LOC: ER 19:30 → EROBS 22:38 → 4S 01-08 06:29
PROVIDERS: Emergency Medicine; ADMIT Family Medicine; ATTEND Family Medicine
DX: I83.891 Varicose veins of right lower extremity with other complications (principal); I42.9 Cardiomyopathy, unspecified; L97.919 Non-pressure chronic ulcer of unspecified part of right lower leg with unspecified severity; I48.21 Permanent atrial fibrillation; S81.802A Unspecified open wound, left lower leg, initial encounter; I10 Essential (primary) hypertension; J45.909 Unspecified asthma, uncomplicated; F41.1 Generalized anxiety disorder; M10.9 Gout, unspecified; M06.9 Rheumatoid arthritis, unspecified; Z96.651 Presence of right artificial knee joint; E11.51 Type 2 diabetes mellitus with diabetic peripheral angiopathy without gangrene; E78.5 Hyperlipidemia, unspecified; I87.2 Venous insufficiency (chronic) (peripheral); E11.40 Type 2 diabetes mellitus with diabetic neuropathy, unspecified; E78.00 Pure hypercholesterolemia, unspecified; G89.29 Other chronic pain; I25.10 Atherosclerotic heart disease of native coronary artery without angina pectoris; Z82.49 Family history of ischemic heart disease and other diseases of the circulatory system; X58.XXXA Exposure to other specified factors, initial encounter; Y93.89 Activity, other specified; Y92.89 Other specified places as the place of occurrence of the external cause; Y99.8 Other external cause status

== ENCOUNTER → 2021-01-12 | Outpatient (CLI) | payer OTHER ==
[~2021-01-12] MED LIST changes: +BYSTOLIC 5 MG5 MG PO
== END ==
LOC: HYPER 12:24
PROVIDERS: ATTEND Emergency Medicine
DX: I87.331 Chronic venous hypertension (idiopathic) with ulcer and inflammation of right lower extremity (principal); I70.232 Atherosclerosis of native arteries of right leg with ulceration of calf; L97.211 Non-pressure chronic ulcer of right calf limited to breakdown of skin; R60.0 Localized edema; G89.29 Other chronic pain; I74.9 Embolism and thrombosis of unspecified artery; I99.8 Other disorder of circulatory system; I48.20 Chronic atrial fibrillation, unspecified; I42.9 Cardiomyopathy, unspecified; E78.5 Hyperlipidemia, unspecified; D68.32 Hemorrhagic disorder due to extrinsic circulating anticoagulants; K21.9 Gastro-esophageal reflux disease without esophagitis; M10.9 Gout, unspecified; F41.1 Generalized anxiety disorder; Z79.82 Long term (current) use of aspirin; Z79.52 Long term (current) use of systemic steroids; Z79.01 Long term (current) use of anticoagulants; Z96.651 Presence of right artificial knee joint

== ENCOUNTER → 2021-01-19 | Outpatient (CLI) | payer OTHER | LOC: HYPER 15:36 | PROVIDERS: ATTEND Emergency Medicine | DX: I87.331 Chronic venous hypertension (idiopathic) with ulcer and inflammation of right lower extremity (principal); I70.232 Atherosclerosis of native arteries of right leg with ulceration of calf; L97.211 Non-pressure chronic ulcer of right calf limited to breakdown of skin; R60.0 Localized edema; G89.29 Other chronic pain; I74.9 Embolism and thrombosis of unspecified artery; I99.8 Other disorder of circulatory system; I48.20 Chronic atrial fibrillation, unspecified; I42.9 Cardiomyopathy, unspecified; E78.5 Hyperlipidemia, unspecified; D68.32 Hemorrhagic disorder due to extrinsic circulating anticoagulants; K21.9 Gastro-esophageal reflux disease without esophagitis; M10.9 Gout, unspecified; F41.1 Generalized anxiety disorder; Z79.82 Long term (current) use of aspirin; Z79.52 Long term (current) use of systemic steroids; Z79.01 Long term (current) use of anticoagulants; Z96.651 Presence of right artificial knee joint ==

== ENCOUNTER → 2021-02-08 | Outpatient (CLI) | payer OTHER | LOC: HYPER 15:10 | PROVIDERS: ATTEND Emergency Medicine | DX: I87.331 Chronic venous hypertension (idiopathic) with ulcer and inflammation of right lower extremity (principal); I70.232 Atherosclerosis of native arteries of right leg with ulceration of calf; L97.211 Non-pressure chronic ulcer of right calf limited to breakdown of skin; R60.0 Localized edema; G89.29 Other chronic pain; I74.9 Embolism and thrombosis of unspecified artery; I99.8 Other disorder of circulatory system; I48.20 Chronic atrial fibrillation, unspecified; I42.9 Cardiomyopathy, unspecified; E78.5 Hyperlipidemia, unspecified; D68.32 Hemorrhagic disorder due to extrinsic circulating anticoagulants; K21.9 Gastro-esophageal reflux disease without esophagitis; M10.9 Gout, unspecified; F41.9 Anxiety disorder, unspecified; Z79.82 Long term (current) use of aspirin; Z79.52 Long term (current) use of systemic steroids; Z79.01 Long term (current) use of anticoagulants; Z96.651 Presence of right artificial knee joint ==

== ENCOUNTER → 2021-02-15 | Outpatient (CLI) | payer OTHER | LOC: HYPER 14:41 | PROVIDERS: ATTEND Emergency Medicine | DX: I87.331 Chronic venous hypertension (idiopathic) with ulcer and inflammation of right lower extremity (principal); I70.232 Atherosclerosis of native arteries of right leg with ulceration of calf; L97.211 Non-pressure chronic ulcer of right calf limited to breakdown of skin; R60.0 Localized edema; G89.29 Other chronic pain; I74.9 Embolism and thrombosis of unspecified artery; I99.8 Other disorder of circulatory system; I48.20 Chronic atrial fibrillation, unspecified; I42.9 Cardiomyopathy, unspecified; E78.5 Hyperlipidemia, unspecified; D68.32 Hemorrhagic disorder due to extrinsic circulating anticoagulants; K21.9 Gastro-esophageal reflux disease without esophagitis; M10.9 Gout, unspecified; F41.9 Anxiety disorder, unspecified; Z79.82 Long term (current) use of aspirin; Z79.52 Long term (current) use of systemic steroids; Z79.01 Long term (current) use of anticoagulants; Z96.651 Presence of right artificial knee joint ==

== ENCOUNTER → 2021-02-21 | Outpatient (CLI) | payer OTHER ==
[~2021-02-21] VITALS: Ht 170.2 cm; Wt 114.8 kg
[~2021-02-21] MED LIST changes: +CALCIUM500 MG PO; +CEFDINIR300 MG PO; +NEXLIZET 180-11 EACH PO; +SPIRIVA INH
[2021-02-21 12:24] VITALS: BP 128/77
[2021-02-21 14:09] VITALS: BP 149/80
[2021-02-21 14:32] VITALS: BP 125/89
--- NOTE | 2021-02-22 06:58 | EKG ---
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 : 1960 Requested By: Minh Gill Order Number: [id number] MD: Lizandro Mckee Measurements Intervals [place] Rate: 65 P: [place]: QRS: -1 QRSD: 96 T: 21 QT: 421 QTc: 438 Interpretive Statements Atrial fibrillation Abnormal R-wave progression, early transition Baseline wander in lead(s) V3 Compared to ECG 01/08/2021 09:34:32 No significant changes Electronically Signed On 02-22-2021 6:58:44 CDT by Lizandro Mckee [email or web address] <ELECTRONICALLY SIGNED> By: Lizandro Mckee MD, [facility] 02/22/21 0658 1221 20 Lizandro Mckee MD, FACC /EPI
== END | disposition home or self-care (01) ==
LOC: CATH 06:43
PROVIDERS: ATTEND Nuclear Medicine Nuclear Cardiology
DX: I82.409 Acute embolism and thrombosis of unspecified deep veins of unspecified lower extremity (principal); I48.91 Unspecified atrial fibrillation; I10 Essential (primary) hypertension; I25.10 Atherosclerotic heart disease of native coronary artery without angina pectoris; E11.9 Type 2 diabetes mellitus without complications; I42.9 Cardiomyopathy, unspecified; E78.5 Hyperlipidemia, unspecified; I73.9 Peripheral vascular disease, unspecified; J45.909 Unspecified asthma, uncomplicated; M19.90 Unspecified osteoarthritis, unspecified site; M06.9 Rheumatoid arthritis, unspecified; F41.1 Generalized anxiety disorder; M10.9 Gout, unspecified; K21.9 Gastro-esophageal reflux disease without esophagitis; Z98.890 Other specified postprocedural states; Z79.899 Other long term (current) drug therapy; Z96.651 Presence of right artificial knee joint; Z79.01 Long term (current) use of anticoagulants

== ENCOUNTER → 2021-02-22 | Outpatient (CLI) | payer OTHER | LOC: HYPER 11:53 | PROVIDERS: ATTEND Emergency Medicine | DX: I87.331 Chronic venous hypertension (idiopathic) with ulcer and inflammation of right lower extremity (principal); I70.232 Atherosclerosis of native arteries of right leg with ulceration of calf; L97.212 Non-pressure chronic ulcer of right calf with fat layer exposed; R60.0 Localized edema; G89.29 Other chronic pain; I74.9 Embolism and thrombosis of unspecified artery; I99.8 Other disorder of circulatory system; I48.20 Chronic atrial fibrillation, unspecified; I42.9 Cardiomyopathy, unspecified; E78.5 Hyperlipidemia, unspecified; D68.32 Hemorrhagic disorder due to extrinsic circulating anticoagulants; K21.9 Gastro-esophageal reflux disease without esophagitis; M10.9 Gout, unspecified; F41.9 Anxiety disorder, unspecified; Z79.82 Long term (current) use of aspirin; Z79.52 Long term (current) use of systemic steroids; Z79.01 Long term (current) use of anticoagulants ==

== ENCOUNTER → 2021-03-01 | Outpatient (CLI) | payer OTHER | LOC: HYPER 11:14 | PROVIDERS: ATTEND Emergency Medicine | DX: I87.331 Chronic venous hypertension (idiopathic) with ulcer and inflammation of right lower extremity (principal); I70.232 Atherosclerosis of native arteries of right leg with ulceration of calf; L97.212 Non-pressure chronic ulcer of right calf with fat layer exposed; I70.238 Atherosclerosis of native arteries of right leg with ulceration of other part of lower leg; L97.822 Non-pressure chronic ulcer of other part of left lower leg with fat layer exposed; R60.0 Localized edema; G89.29 Other chronic pain; I74.9 Embolism and thrombosis of unspecified artery; I99.8 Other disorder of circulatory system; I48.20 Chronic atrial fibrillation, unspecified; I42.9 Cardiomyopathy, unspecified; E78.5 Hyperlipidemia, unspecified; D68.32 Hemorrhagic disorder due to extrinsic circulating anticoagulants; K21.9 Gastro-esophageal reflux disease without esophagitis; M10.9 Gout, unspecified; F41.9 Anxiety disorder, unspecified; Z79.82 Long term (current) use of aspirin; Z79.52 Long term (current) use of systemic steroids; Z79.01 Long term (current) use of anticoagulants ==

== ENCOUNTER → 2021-03-16 | Outpatient (CLI) | payer OTHER | LOC: HYPER 14:15 | PROVIDERS: ATTEND Emergency Medicine | DX: I87.331 Chronic venous hypertension (idiopathic) with ulcer and inflammation of right lower extremity (principal); I70.232 Atherosclerosis of native arteries of right leg with ulceration of calf; L97.212 Non-pressure chronic ulcer of right calf with fat layer exposed; R60.0 Localized edema; G89.29 Other chronic pain; E78.5 Hyperlipidemia, unspecified; D68.32 Hemorrhagic disorder due to extrinsic circulating anticoagulants; I74.9 Embolism and thrombosis of unspecified artery; I99.8 Other disorder of circulatory system; I48.20 Chronic atrial fibrillation, unspecified; I42.9 Cardiomyopathy, unspecified; K21.9 Gastro-esophageal reflux disease without esophagitis; M10.9 Gout, unspecified; F41.9 Anxiety disorder, unspecified; Z79.82 Long term (current) use of aspirin; Z79.52 Long term (current) use of systemic steroids; Z79.01 Long term (current) use of anticoagulants ==

== ENCOUNTER → 2021-03-23 | Outpatient (CLI) | payer OTHER ==
[2021-03-23 09:05] LABS: ABSOLUTE NEUTROPHILS 11.1 thou/uL (1.4-8.2); BASOPHILS 0.6 % (0.0-2.0); EOSINOPHILS 0.4 % (0.0-3.0); HEMATOCRIT 37.8 % (42.0-52.0); HEMOGLOBIN 11.8 gm/dL (14.0-18.0); LYMPHOCYTES 8.9 % (24.0-44.0); MCH 24.7 pg (26.0-34.0); MCHC 31.1 g/dL (28.0-37.0); MCV 79.3 fL (80.0-100.0); PLATELET COUNT 245 thou/uL (150-400); POLYS 83.1 % (36.0-66.0); RBC 4.77 mil/uL (4.50-6.00); RDW 18.5 % (10.5-14.5); WBC 13.4 thou/uL (4.0-11.0)
[2021-03-23 09:19] LABS: ALBUMIN 3.5 g/dL (3.4-5.0); CALCIUM 9.4 mg/dL (8.5-10.1); CREATININE 1.5 mg/dL (0.7-1.3); POTASSIUM 3.4 mmol/L (3.5-5.1); TOTAL BILIRUBIN 0.5 mg/dL (0.2-1.0)
[2021-03-23 13:47] LABS: POLYCHROMASIA 2+
[2021-03-23 13:48] LABS: OVALOCYTES FEW
[2021-03-23 13:49] LABS: TARGET CELLS FEW
[2021-03-24 00:06] LABS: GLYCOHEMOGLOBIN (HGB A1C) 6.9 % (4.8-5.6)
== END ==
LOC: LAB 07:18
PROVIDERS: ATTEND Family Medicine
DX: E11.9 Type 2 diabetes mellitus without complications (principal)

== ENCOUNTER → 2021-03-23 | Outpatient (CLI) | payer OTHER | LOC: HYPER 10:24 | PROVIDERS: ATTEND Emergency Medicine | DX: I87.331 Chronic venous hypertension (idiopathic) with ulcer and inflammation of right lower extremity (principal); I70.232 Atherosclerosis of native arteries of right leg with ulceration of calf; L97.212 Non-pressure chronic ulcer of right calf with fat layer exposed; L84 Corns and callosities; R60.0 Localized edema; G89.29 Other chronic pain; E78.5 Hyperlipidemia, unspecified; D68.32 Hemorrhagic disorder due to extrinsic circulating anticoagulants; I74.9 Embolism and thrombosis of unspecified artery; I99.8 Other disorder of circulatory system; I48.20 Chronic atrial fibrillation, unspecified; I42.9 Cardiomyopathy, unspecified; K21.9 Gastro-esophageal reflux disease without esophagitis; M10.9 Gout, unspecified; F41.9 Anxiety disorder, unspecified; Z79.82 Long term (current) use of aspirin; Z79.52 Long term (current) use of systemic steroids; Z79.01 Long term (current) use of anticoagulants; Z96.659 Presence of unspecified artificial knee joint ==

== ENCOUNTER → 2021-03-30 | Outpatient (CLI) | payer OTHER | LOC: HYPER 08:52 | PROVIDERS: ATTEND Emergency Medicine | DX: I87.331 Chronic venous hypertension (idiopathic) with ulcer and inflammation of right lower extremity (principal); I70.232 Atherosclerosis of native arteries of right leg with ulceration of calf; L97.212 Non-pressure chronic ulcer of right calf with fat layer exposed; L84 Corns and callosities; R60.0 Localized edema; G89.29 Other chronic pain; E78.5 Hyperlipidemia, unspecified; D68.32 Hemorrhagic disorder due to extrinsic circulating anticoagulants; I74.9 Embolism and thrombosis of unspecified artery; I99.8 Other disorder of circulatory system; I48.20 Chronic atrial fibrillation, unspecified; I42.9 Cardiomyopathy, unspecified; K21.9 Gastro-esophageal reflux disease without esophagitis; M10.9 Gout, unspecified; F41.9 Anxiety disorder, unspecified; Z79.82 Long term (current) use of aspirin; Z79.52 Long term (current) use of systemic steroids; Z79.01 Long term (current) use of anticoagulants; Z96.651 Presence of right artificial knee joint ==

== ENCOUNTER → 2021-04-13 | Outpatient (CLI) | payer OTHER | LOC: HYPER 09:04 | PROVIDERS: ATTEND Emergency Medicine | DX: I87.331 Chronic venous hypertension (idiopathic) with ulcer and inflammation of right lower extremity (principal); I70.232 Atherosclerosis of native arteries of right leg with ulceration of calf; L97.212 Non-pressure chronic ulcer of right calf with fat layer exposed; L84 Corns and callosities; R60.0 Localized edema; G89.29 Other chronic pain; E78.5 Hyperlipidemia, unspecified; D68.32 Hemorrhagic disorder due to extrinsic circulating anticoagulants; I74.9 Embolism and thrombosis of unspecified artery; I99.8 Other disorder of circulatory system; I48.20 Chronic atrial fibrillation, unspecified; I42.9 Cardiomyopathy, unspecified; K21.9 Gastro-esophageal reflux disease without esophagitis; M10.9 Gout, unspecified; F41.9 Anxiety disorder, unspecified; Z79.82 Long term (current) use of aspirin; Z79.52 Long term (current) use of systemic steroids; Z79.01 Long term (current) use of anticoagulants; Z96.651 Presence of right artificial knee joint ==

== ENCOUNTER → 2021-04-26 | Outpatient (CLI) | payer OTHER | LOC: HYPER 09:01 | PROVIDERS: ATTEND Emergency Medicine | DX: I87.331 Chronic venous hypertension (idiopathic) with ulcer and inflammation of right lower extremity (principal); I70.232 Atherosclerosis of native arteries of right leg with ulceration of calf; L97.212 Non-pressure chronic ulcer of right calf with fat layer exposed; L84 Corns and callosities; R60.0 Localized edema; G89.29 Other chronic pain; E78.5 Hyperlipidemia, unspecified; D68.32 Hemorrhagic disorder due to extrinsic circulating anticoagulants; I74.9 Embolism and thrombosis of unspecified artery; I99.8 Other disorder of circulatory system; I48.20 Chronic atrial fibrillation, unspecified; I42.9 Cardiomyopathy, unspecified; K21.9 Gastro-esophageal reflux disease without esophagitis; M10.9 Gout, unspecified; F41.9 Anxiety disorder, unspecified; Z79.82 Long term (current) use of aspirin; Z79.52 Long term (current) use of systemic steroids; Z79.01 Long term (current) use of anticoagulants; Z96.651 Presence of right artificial knee joint ==

== ENCOUNTER → 2021-04-27 | Outpatient (CLI) | payer OTHER ==
[2021-04-27 08:37] LABS: ABSOLUTE NEUTROPHILS 9.3 thou/uL (1.4-8.2); BASOPHILS 0.7 % (0.0-2.0); EOSINOPHILS 0.9 % (0.0-3.0); HEMATOCRIT 38.8 % (42.0-52.0); LYMPHOCYTES 13.9 % (24.0-44.0); MCH 25.2 pg (26.0-34.0); MCHC 31.1 g/dL (28.0-37.0); MONOCYTES 7.6 % (1.0-8.0); PLATELET COUNT 233 thou/uL (150-400); POLYS 76.9 % (36.0-66.0); RBC 4.79 mil/uL (4.50-6.00); RDW 19.5 % (10.5-14.5); WBC 12.1 thou/uL (4.0-11.0)
[2021-04-27 09:01] LABS: ALBUMIN 3.3 g/dL (3.4-5.0); CALCIUM 8.7 mg/dL (8.5-10.1); CREATININE 1.1 mg/dL (0.7-1.3); POTASSIUM 3.6 mmol/L (3.5-5.1); TOTAL BILIRUBIN 0.5 mg/dL (0.2-1.0); TOTAL PROTEIN 6.4 g/dL (6.4-8.2); URIC ACID* 4.5 mg/dL (3.5-7.2)
== END ==
LOC: LAB 06:56
PROVIDERS: ATTEND Internal Medicine Rheumatology
DX: E55.9 Vitamin D deficiency, unspecified (principal); M1A.09X0 Idiopathic chronic gout, multiple sites, without tophus (tophi); Z79.899 Other long term (current) drug therapy

== ENCOUNTER → 2021-05-05 | Outpatient (CLI) | payer OTHER | LOC: HYPER 12:18 | PROVIDERS: ATTEND Emergency Medicine | DX: I87.331 Chronic venous hypertension (idiopathic) with ulcer and inflammation of right lower extremity (principal); I70.232 Atherosclerosis of native arteries of right leg with ulceration of calf; L97.212 Non-pressure chronic ulcer of right calf with fat layer exposed; L84 Corns and callosities; R60.0 Localized edema; G89.29 Other chronic pain; E78.5 Hyperlipidemia, unspecified; D68.32 Hemorrhagic disorder due to extrinsic circulating anticoagulants; I74.9 Embolism and thrombosis of unspecified artery; I99.8 Other disorder of circulatory system; I48.20 Chronic atrial fibrillation, unspecified; I42.9 Cardiomyopathy, unspecified; K21.9 Gastro-esophageal reflux disease without esophagitis; M10.9 Gout, unspecified; F41.9 Anxiety disorder, unspecified; Z79.82 Long term (current) use of aspirin; Z79.52 Long term (current) use of systemic steroids; Z79.01 Long term (current) use of anticoagulants; Z96.651 Presence of right artificial knee joint ==

== ENCOUNTER → 2021-05-10 | Outpatient (CLI) | payer OTHER | LOC: HYPER 08:41 | PROVIDERS: ATTEND Emergency Medicine | DX: I87.331 Chronic venous hypertension (idiopathic) with ulcer and inflammation of right lower extremity (principal); I70.232 Atherosclerosis of native arteries of right leg with ulceration of calf; L97.212 Non-pressure chronic ulcer of right calf with fat layer exposed; L84 Corns and callosities; R60.0 Localized edema; G89.29 Other chronic pain; E78.5 Hyperlipidemia, unspecified; D68.32 Hemorrhagic disorder due to extrinsic circulating anticoagulants; I74.9 Embolism and thrombosis of unspecified artery; I99.8 Other disorder of circulatory system; I48.20 Chronic atrial fibrillation, unspecified; I42.9 Cardiomyopathy, unspecified; K21.9 Gastro-esophageal reflux disease without esophagitis; M10.9 Gout, unspecified; F41.9 Anxiety disorder, unspecified; Z79.82 Long term (current) use of aspirin; Z79.52 Long term (current) use of systemic steroids; Z79.01 Long term (current) use of anticoagulants; Z96.651 Presence of right artificial knee joint ==

== ENCOUNTER → 2021-05-24 | Outpatient (CLI) | payer OTHER | LOC: HYPER 08:49 | PROVIDERS: ATTEND Emergency Medicine | DX: I87.331 Chronic venous hypertension (idiopathic) with ulcer and inflammation of right lower extremity (principal); L97.812 Non-pressure chronic ulcer of other part of right lower leg with fat layer exposed; D68.32 Hemorrhagic disorder due to extrinsic circulating anticoagulants; R60.0 Localized edema; I70.238 Atherosclerosis of native arteries of right leg with ulceration of other part of lower leg; I70.232 Atherosclerosis of native arteries of right leg with ulceration of calf; L97.211 Non-pressure chronic ulcer of right calf limited to breakdown of skin; I74.9 Embolism and thrombosis of unspecified artery; I99.8 Other disorder of circulatory system; G89.29 Other chronic pain; M10.9 Gout, unspecified; E78.5 Hyperlipidemia, unspecified; I10 Essential (primary) hypertension; I48.20 Chronic atrial fibrillation, unspecified; F41.1 Generalized anxiety disorder; Z79.82 Long term (current) use of aspirin; Z79.52 Long term (current) use of systemic steroids; Z79.01 Long term (current) use of anticoagulants; Z98.890 Other specified postprocedural states; Z79.84 Long term (current) use of oral hypoglycemic drugs; Z79.899 Other long term (current) drug therapy ==

== ENCOUNTER → 2021-06-03 | Outpatient (CLI) | payer OTHER ==
[2021-06-03 10:58] LABS: HEMATOCRIT 38.2 % (42.0-52.0); HEMOGLOBIN 12.1 gm/dL (14.0-18.0); MCH 25.8 pg (26.0-34.0); MCHC 31.6 g/dL (28.0-37.0); MCV 81.5 fL (80.0-100.0); PLATELET COUNT 216 thou/uL (150-400); RBC 4.69 mil/uL (4.50-6.00); WBC 12.6 thou/uL (4.0-11.0)
[2021-06-03 11:12] LABS: ALBUMIN 3.3 g/dL (3.4-5.0); CALCIUM 8.4 mg/dL (8.5-10.1); CREATININE 1.1 mg/dL (0.7-1.3); POTASSIUM 4.1 mmol/L (3.5-5.1); TOTAL BILIRUBIN 0.5 mg/dL (0.2-1.0); TOTAL PROTEIN 6.6 g/dL (6.4-8.2)
[2021-06-03 12:39] LABS: ABSOLUTE NEUTROPHILS 11.2 thou/uL (1.4-8.2); ANISOCYTOSIS 1+; PLATELET ESTIMATE NORMAL
== END ==
LOC: LAB 10:07
PROVIDERS: ATTEND Family Medicine
DX: R43.2 Parageusia (principal); B37.0 Candidal stomatitis

== ENCOUNTER → 2021-06-16 | Outpatient (CLI) | payer OTHER | LOC: HYPER 08:05 | PROVIDERS: ATTEND Emergency Medicine | DX: I87.331 Chronic venous hypertension (idiopathic) with ulcer and inflammation of right lower extremity (principal); I70.232 Atherosclerosis of native arteries of right leg with ulceration of calf; L97.212 Non-pressure chronic ulcer of right calf with fat layer exposed; L84 Corns and callosities; R60.0 Localized edema; D68.32 Hemorrhagic disorder due to extrinsic circulating anticoagulants; E78.5 Hyperlipidemia, unspecified; G89.29 Other chronic pain; I74.9 Embolism and thrombosis of unspecified artery; I99.8 Other disorder of circulatory system; I42.9 Cardiomyopathy, unspecified; I10 Essential (primary) hypertension; I48.20 Chronic atrial fibrillation, unspecified; M10.9 Gout, unspecified; F41.9 Anxiety disorder, unspecified; Z79.82 Long term (current) use of aspirin; Z79.52 Long term (current) use of systemic steroids; Z79.01 Long term (current) use of anticoagulants; Z79.84 Long term (current) use of oral hypoglycemic drugs ==

== ENCOUNTER → 2021-06-29 | Outpatient (CLI) | payer OTHER | LOC: HYPER 09:12 | PROVIDERS: ATTEND Emergency Medicine | DX: I87.331 Chronic venous hypertension (idiopathic) with ulcer and inflammation of right lower extremity (principal); I70.232 Atherosclerosis of native arteries of right leg with ulceration of calf; L97.212 Non-pressure chronic ulcer of right calf with fat layer exposed; L84 Corns and callosities; R60.0 Localized edema; D68.32 Hemorrhagic disorder due to extrinsic circulating anticoagulants; E78.5 Hyperlipidemia, unspecified; G89.29 Other chronic pain; I74.9 Embolism and thrombosis of unspecified artery; I99.8 Other disorder of circulatory system; I42.9 Cardiomyopathy, unspecified; K21.9 Gastro-esophageal reflux disease without esophagitis; I48.20 Chronic atrial fibrillation, unspecified; M10.9 Gout, unspecified; F41.9 Anxiety disorder, unspecified; Z79.82 Long term (current) use of aspirin; Z79.52 Long term (current) use of systemic steroids; Z79.01 Long term (current) use of anticoagulants; Z79.84 Long term (current) use of oral hypoglycemic drugs ==

== ENCOUNTER → 2021-07-20 | Outpatient (CLI) | payer OTHER | LOC: HYPER 08:25 | PROVIDERS: ATTEND Emergency Medicine | DX: I87.331 Chronic venous hypertension (idiopathic) with ulcer and inflammation of right lower extremity (principal); I70.232 Atherosclerosis of native arteries of right leg with ulceration of calf; L97.212 Non-pressure chronic ulcer of right calf with fat layer exposed; L84 Corns and callosities; R60.0 Localized edema; D68.32 Hemorrhagic disorder due to extrinsic circulating anticoagulants; E78.5 Hyperlipidemia, unspecified; G89.29 Other chronic pain; I74.9 Embolism and thrombosis of unspecified artery; I99.8 Other disorder of circulatory system; I42.9 Cardiomyopathy, unspecified; K21.9 Gastro-esophageal reflux disease without esophagitis; I48.20 Chronic atrial fibrillation, unspecified; M10.9 Gout, unspecified; F41.9 Anxiety disorder, unspecified; Z79.82 Long term (current) use of aspirin; Z79.52 Long term (current) use of systemic steroids; Z79.01 Long term (current) use of anticoagulants; Z79.84 Long term (current) use of oral hypoglycemic drugs ==

== ENCOUNTER → 2021-08-22 | Outpatient (CLI) | payer OTHER | LOC: HYPER 12:25 | PROVIDERS: ATTEND Emergency Medicine | DX: I87.331 Chronic venous hypertension (idiopathic) with ulcer and inflammation of right lower extremity (principal); I70.238 Atherosclerosis of native arteries of right leg with ulceration of other part of lower leg; L97.812 Non-pressure chronic ulcer of other part of right lower leg with fat layer exposed; I70.232 Atherosclerosis of native arteries of right leg with ulceration of calf; L97.311 Non-pressure chronic ulcer of right ankle limited to breakdown of skin; R60.0 Localized edema; D68.32 Hemorrhagic disorder due to extrinsic circulating anticoagulants; I74.9 Embolism and thrombosis of unspecified artery; I99.8 Other disorder of circulatory system; I48.20 Chronic atrial fibrillation, unspecified; G89.29 Other chronic pain; F41.1 Generalized anxiety disorder; M10.9 Gout, unspecified; E78.5 Hyperlipidemia, unspecified; Z79.82 Long term (current) use of aspirin; Z79.52 Long term (current) use of systemic steroids; Z79.01 Long term (current) use of anticoagulants; Z98.890 Other specified postprocedural states; Z79.899 Other long term (current) drug therapy ==

== ENCOUNTER 2021-09-07 21:30 | Inpatient (IN) | payer OTHER ==
[~2021-09-07] VITALS: Ht 170.2 cm; Wt 97.1 kg
[2021-09-07 22:38] LABS: ABSOLUTE NEUTROPHILS 6.4 thou/uL (1.4-8.2); BASOPHILS 0.3 % (0.0-2.0); EOSINOPHILS 0.1 % (0.0-3.0); HEMATOCRIT 46.6 % (42.0-52.0); HEMOGLOBIN 14.8 gm/dL (14.0-18.0); LYMPHOCYTES 9.6 % (24.0-44.0); MCH 26.5 pg (26.0-34.0); MCHC 31.7 g/dL (28.0-37.0); MCV 83.7 fL (80.0-100.0); MONOCYTES 11.2 % (1.0-8.0); PLATELET COUNT 194 thou/uL (150-400); POLYS 78.8 % (36.0-66.0); RBC 5.57 mil/uL (4.50-6.00); WBC 8.1 thou/uL (4.0-11.0)
[2021-09-07 22:51] LABS: CREATININE 2.4 mg/dL (0.7-1.3); POTASSIUM 4.6 mmol/L (3.5-5.1)
[2021-09-07 23:00] LABS: ALBUMIN 3.2 g/dL (3.4-5.0); TOTAL BILIRUBIN 1.2 mg/dL (0.2-1.0); TOTAL PROTEIN 7.2 g/dL (6.4-8.2)
[2021-09-07 23:02] LABS: INR 1.25; PROTIME 13.5 Seconds (10.5-12.1)
[2021-09-08 01:13] VITALS: BP 109/69
[2021-09-08 01:20] VITALS: BP 126/69
--- NOTE | 2021-09-08 02:06 | NUR ---
99 % on room air. denies shortness of breath. he has felt like he has malaise the past few days. denies pain. strong steady gait. 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 equal smile. speech is clear. occassionally switches the word that he is wanting for a similar word. he is not sure which medications and dosages. he leaves this to his . 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 he feels that he did not eat much food and took his blood sugar lower drug and became hypoglycemic. he atributes his slurred speech to low blood glucose. gave him his privacy code and asked for him to relay that to his . he does not want her woke up at this time. oriented to room and surroundings.
[2021-09-08 04:36] VITALS: BP 121/77
[2021-09-08 07:33] VITALS: BP 111/74
--- NOTE | 2021-09-08 07:37 | EKG ---
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 GUADALUPE : 1960 Requested By: Carlos Forbes Order Number: [id number] MD: Samson Lugo Measurements Intervals [place] Rate: 65 P: [place]: QRS: -2 QRSD: 84 T: 51 QT: 412 QTc: 429 Interpretive Statements Atrial fibrillation Baseline wander in lead(s) II,III,aVR,aVL,aVF,V2 Compared to ECG 02/21/2021 12:21:05 No significant changes Electronically Signed On 09-08-2021 7:37:12 CDT by Samson Lugo [email or web address] <ELECTRONICALLY SIGNED> By: Samson Lugo MD, [facility] 09/08/21 0737 51 51 Samson Lugo MD, [facility] /EPI
[2021-09-08] MEDS ORDERED: PREDNISONE 20 M20 MG PO (10:02)
[2021-09-08 10:05] VITALS: BP 111/74
--- NOTE | 2021-09-08 10:12 | NUR ---
assumed care of pt at 0700. pt aox4 asymptomatic, no acute distress. ok to discharge by cardiology and primary. meds sent to pharm electronically. waiting on transport.
== END 2021-09-08 11:34 | disposition home or self-care (01) | DRG 177 ==
LOC: ER 21:30 → EROBS 23:31 → 3W 09-08 00:58
PROVIDERS: Student in an Organized Health Care Education/Training Program; ADMIT Family Medicine; ATTEND Family Medicine
DX: U07.1 COVID-19 (principal); J12.82 Pneumonia due to coronavirus disease 2019; N17.9 Acute kidney failure, unspecified; G45.9 Transient cerebral ischemic attack, unspecified; I42.9 Cardiomyopathy, unspecified; I48.21 Permanent atrial fibrillation; J45.909 Unspecified asthma, uncomplicated; G89.29 Other chronic pain; F41.1 Generalized anxiety disorder; M10.9 Gout, unspecified; E78.5 Hyperlipidemia, unspecified; Z96.651 Presence of right artificial knee joint; M06.9 Rheumatoid arthritis, unspecified; M54.9 Dorsalgia, unspecified; I25.10 Atherosclerotic heart disease of native coronary artery without angina pectoris; K21.9 Gastro-esophageal reflux disease without esophagitis; E78.00 Pure hypercholesterolemia, unspecified; I87.2 Venous insufficiency (chronic) (peripheral); N18.9 Chronic kidney disease, unspecified; E11.51 Type 2 diabetes mellitus with diabetic peripheral angiopathy without gangrene; I12.9 Hypertensive chronic kidney disease with stage 1 through stage 4 chronic kidney disease, or unspecified chronic kidney disease; S81.801A Unspecified open wound, right lower leg, initial encounter; Z89.021 Acquired absence of right finger(s); Z88.6 Allergy status to analgesic agent; Z88.1 Allergy status to other antibiotic agents; Z88.8 Allergy status to other drugs, medicaments and biological substances; X58.XXXA Exposure to other specified factors, initial encounter; Y93.89 Activity, other specified; Y92.89 Other specified places as the place of occurrence of the external cause; Y99.8 Other external cause status; Z95.5 Presence of coronary angioplasty implant and graft

== ENCOUNTER → 2021-09-22 | Outpatient (CLI) | payer OTHER ==
[~2021-09-22] MED LIST changes: +PREDNISONE 20 M20 MG PO
== END ==
LOC: SJCVCIMAG 10:06
PROVIDERS: ATTEND Internal Medicine Cardiovascular Disease
DX: I08.3 Combined rheumatic disorders of mitral, aortic and tricuspid valves (principal); I25.10 Atherosclerotic heart disease of native coronary artery without angina pectoris; E11.9 Type 2 diabetes mellitus without complications; E78.00 Pure hypercholesterolemia, unspecified; M79.89 Other specified soft tissue disorders; I48.21 Permanent atrial fibrillation; D68.59 Other primary thrombophilia; I12.9 Hypertensive chronic kidney disease with stage 1 through stage 4 chronic kidney disease, or unspecified chronic kidney disease; N17.9 Acute kidney failure, unspecified; I87.2 Venous insufficiency (chronic) (peripheral); M10.9 Gout, unspecified; Z86.16 Personal history of COVID-19; Z78.9 Other specified health status; Z88.1 Allergy status to other antibiotic agents; Z88.0 Allergy status to penicillin; Z79.82 Long term (current) use of aspirin; Z79.891 Long term (current) use of opiate analgesic; Z79.899 Other long term (current) drug therapy

== ENCOUNTER → 2021-10-05 | Outpatient (CLI) | payer OTHER | LOC: SJCVCIMAG 06:54 | PROVIDERS: ATTEND Internal Medicine | DX: N28.9 Disorder of kidney and ureter, unspecified (principal); I12.9 Hypertensive chronic kidney disease with stage 1 through stage 4 chronic kidney disease, or unspecified chronic kidney disease; N17.0 Acute kidney failure with tubular necrosis; E78.00 Pure hypercholesterolemia, unspecified; E11.9 Type 2 diabetes mellitus without complications; E78.5 Hyperlipidemia, unspecified; I25.10 Atherosclerotic heart disease of native coronary artery without angina pectoris; I87.2 Venous insufficiency (chronic) (peripheral); J45.909 Unspecified asthma, uncomplicated; Z88.1 Allergy status to other antibiotic agents; Z88.8 Allergy status to other drugs, medicaments and biological substances; Z86.16 Personal history of COVID-19 ==